=== PATIENT | male | born 1960 | race Caucasian/White ===

== ENCOUNTER 2022-06-13 14:05 | Day surgery (SDC) | payer BC, OTHER ==
[2022-06-13] MEDS ORDERED: DALBAVANCIN HCL 1,500 MG in DEXTROSE 5%-WATER - 500 ML IVPB ONE (14:30)
[2022-06-13 15:57] VITALS: BP 127/71; PULSE 68; RESP 18; TEMP 98.1
== END 2022-06-13 15:49 | disposition home or self-care (01) ==
LOC: FINFUSION 14:05 → FM/S 14:09 → FINFUSION 15:49
PROVIDERS: ATTEND Internal Medicine Infectious Disease
DX: M86.9 Osteomyelitis, unspecified (principal); E11.9 Type 2 diabetes mellitus without complications; G62.9 Polyneuropathy, unspecified
CPT/HCPCS: 96365; J0875

== ENCOUNTER 2022-06-21 12:26 | Day surgery (SDC) | payer BC, OTHER ==
[2022-06-21] MEDS ORDERED: DALBAVANCIN HCL 1,500 MG in DEXTROSE 5%-WATER - 500 ML IVPB ONE (13:30)
[2022-06-21 13:50] VITALS: BP 116/76; PULSE 76; RESP 18; TEMP 98.6
== END 2022-06-21 15:04 | disposition home or self-care (01) ==
LOC: FINFUSION 12:26 → FM/S 13:33 → FINFUSION 15:04
PROVIDERS: ATTEND Internal Medicine Infectious Disease
DX: M86.9 Osteomyelitis, unspecified (principal); E11.9 Type 2 diabetes mellitus without complications; G62.9 Polyneuropathy, unspecified
CPT/HCPCS: 96365; J0875

== ENCOUNTER 2022-08-06 11:32 | Inpatient (IN) | payer BC, OTHER ==
[2022-08-06 11:47] VITALS: BMI 31.4
[2022-08-06] MEDS ORDERED: PIPERACILLIN/TAZOB 3.375 GM 2.25 GM in DEXTROSE 5%-WATER - 50 ML IVPB ONE (15:26)
[2022-08-06] MEDS ORDERED: VANCOMYCIN/WATER 1,250 MG/250 ML BAG (RESTRICTED TO ID ONLY) IVPB ONE (15:34)
[2022-08-06] MEDS ORDERED: PIPERACILLIN/TAZOB 2.25 GM 2.25 GM/50 ML BAG IVPB ONE (15:37)
[2022-08-06] MEDS ORDERED: VANCOMYCIN/WATER 2 GM/400 ML PREMIX BAG IVPB ONE (15:39)
[2022-08-06 16:29] LABS: ALBUMIN 3.8 g/dl (3.4-5.0); BASO % 0.8 % (0-2.0); BLOOD UREA NITROGEN 35.8 mg/dL (7-18); CREATININE 6.7 mg/dL (0.55-1.3); EOS % 5.7 % (0-4.5); HEMATOCRIT 37.7 % (35.4-49); HEMOGLOBIN 12.1 GM/dL (11.7-16.9); LYMPH % 13.1 % (8-40); MCH 30.4 pg (25.7-33.7); MCHC 32.2 g/dl (32.0-35.9); MEAN CELL VOLUME 94.3 fl (80-96); MEAN PLT VOLUME 9.1 fl (7.5-11.1); MONO % 9.6 % (3.8-10.2); NEUT % 70.8 % (42.8-82.8); PLATELET COUNT 215 10^3/uL (134-434); RDW 17.5 % (11.9-15.9); WHITE BLOOD COUNT 7.8 K/mm3 (4.0-10.0)
[2022-08-06 16:30] LABS: BILIRUBIN,TOTAL 0.6 mg/dL (0.2-1); TOT PROT 7.8 g/dl (6.4-8.2)
[2022-08-06 16:37] LABS: INR 1.21 (0.83-1.09); PROTHROMBIN TIME (PATIENT) 13.9 SEC (9.7-13.0)
[2022-08-06 16:40] LABS: ACTIVATED PTT 31.3 SECONDS (25.2-36.5)
[2022-08-06 17:48] LABS: ERYTHROCYTE SEDIMENTATION RATE 48 mm/hr (0-20)
[2022-08-06] MEDS ORDERED: ACETAMINOPHEN 325 MG TABLET (FP) PO PRN (18:12)
[2022-08-06] MEDS ORDERED: HEPARIN NA (PORCINE) 5,000 UNITS/ML 1ML VIAL SQ SCH (22:00)
[2022-08-06] MEDS: INSULIN SLIDING SCALE (NOVOLOG) 1 VIAL SQ SCH (22:24)
[2022-08-06] MEDS ORDERED: HEPARIN NA (PORCINE) 5,000 UNITS/ML 1ML VIAL ONE (23:22)
[2022-08-06] MEDS ORDERED: ATORVASTATIN CA 40 MG TABLET (FP) ONE (23:22)
[2022-08-06] MEDS: HEPARIN - 25,000 UNIT in SODIUM CHLORIDE 495 ML IV SCH (23:33)
[2022-08-06] MEDS: HEPARIN NA (PORCINE) 5,000 UNITS/ML 1ML VIAL IVPUSH PRN (23:33)
[2022-08-06] MEDS: ATORVASTATIN CA 40 MG TABLET (FP) PO SCH (23:33)
[2022-08-07] MEDS ORDERED: LORazepam 0.5 MG TABLET ONE (00:40)
[2022-08-07] MEDS: LORazepam 0.5 MG TABLET PO PRN ×2 (00:50→22:04)
[2022-08-07] MEDS: INSULIN (LEVEMIR) 100 UNITS/ML UNITS SQ SCH ×2 (08:55→22:15)
[2022-08-07] MEDS: INSULIN SLIDING SCALE (NOVOLOG) 1 VIAL SQ SCH ×4 (08:55→22:10)
[2022-08-07 09:36] LABS: EOS % 6.5 % (0-4.5); HEMOGLOBIN 11.2 GM/dL (11.7-16.9); LYMPH % 14.6 % (8-40); MCH 30.9 pg (25.7-33.7); MEAN CELL VOLUME 93.6 fl (80-96); MONO % 9.4 % (3.8-10.2); NEUT % 68.5 % (42.8-82.8); PLATELET COUNT 215 10^3/uL (134-434); RBC 3.64 M/mm3 (4.00-5.60); RDW 17.3 % (11.9-15.9); WHITE BLOOD COUNT 6.8 K/mm3 (4.0-10.0)
[2022-08-07] MEDS: FUROSEMIDE 40 MG TABLET (FP) PO SCH (09:46)
[2022-08-07] MEDS ORDERED: FUROSEMIDE 40 MG TABLET (FP) ONE (09:48)
[2022-08-07 09:57] LABS: INR 1.16 (0.83-1.09); PROTHROMBIN TIME (PATIENT) 13.4 SEC (9.7-13.0)
[2022-08-07 10:03] LABS: ALBUMIN 3.6 g/dl (3.4-5.0); CALCIUM 9.1 mg/dL (8.5-10.1); MAGNESIUM 1.8 mg/dL (1.8-2.4)
[2022-08-07 10:05] LABS: CREATININE 7.3 mg/dL (0.55-1.3)
[2022-08-07 10:07] LABS: BILIRUBIN,TOTAL 0.8 mg/dL (0.2-1); TOT PROT 7.3 g/dl (6.4-8.2)
[2022-08-07] MEDS: HEPARIN NA (PORCINE) 5,000 UNITS/ML 1ML VIAL IVPUSH PRN (14:24)
[2022-08-07] MEDS ORDERED: HEPARIN NA (PORCINE) 5,000 UNITS/ML 1ML VIAL ONE (14:26)
[2022-08-07 17:10] VITALS: RESP 18
[2022-08-07] MEDS: ATORVASTATIN CA 40 MG TABLET (FP) PO SCH (22:04)
[2022-08-08] MEDS: PIPERACILLIN/TAZOB 2.25 GM 2.25 GM in DEXTROSE 5%-WATER - 50 ML IVPB SCH ×2 (04:25→09:25)
[2022-08-08] MEDS: INSULIN SLIDING SCALE (NOVOLOG) 1 VIAL SQ SCH ×4 (06:41→22:12)
[2022-08-08] MEDS: INSULIN (LEVEMIR) 100 UNITS/ML UNITS SQ SCH ×2 (07:55→22:17)
[2022-08-08] MEDS: FUROSEMIDE 40 MG TABLET (FP) PO SCH (09:15)
[2022-08-08 10:46] LABS: BASO % 0.6 % (0-2.0); EOS % 5.3 % (0-4.5); HEMATOCRIT 34.5 % (35.4-49); HEMOGLOBIN 11.4 GM/dL (11.7-16.9); LYMPH % 14.5 % (8-40); MCH 30.8 pg (25.7-33.7); MEAN CELL VOLUME 93.4 fl (80-96); MEAN PLT VOLUME 9.2 fl (7.5-11.1); MONO % 10.8 % (3.8-10.2); NEUT % 68.8 % (42.8-82.8); PLATELET COUNT 192 10^3/uL (134-434); RBC 3.69 M/mm3 (4.00-5.60); RDW 17.2 % (11.9-15.9); WHITE BLOOD COUNT 6.6 K/mm3 (4.0-10.0)
[2022-08-08 11:15] LABS: ALBUMIN 3.4 g/dl (3.4-5.0); BLOOD UREA NITROGEN 29.9 mg/dL (7-18)
[2022-08-08 11:17] LABS: CREATININE 5.7 mg/dL (0.55-1.3)
[2022-08-08 11:19] LABS: BILIRUBIN,TOTAL 0.6 mg/dL (0.2-1); TOT PROT 6.9 g/dl (6.4-8.2)
[2022-08-08] MEDS: COLLAGENASE CLOSTRIDIUM HIST. 30 GRAMS TUBE TP SCH (11:31)
[2022-08-08] MEDS: HEPARIN NA (PORCINE) 5,000 UNITS/ML 1ML VIAL IVPUSH PRN ×2 (11:37→18:58)
[2022-08-08] MEDS: CEFTRIAXONE 2 GM in DEXTROSE 5%-WATER 100 ML IVPB SCH (15:32)
[2022-08-08] MEDS ORDERED: INSULIN (NOVOLOG) ASPART 100 UNITS/ML 10ML VIAL ONE (22:08)
[2022-08-08] MEDS: ATORVASTATIN CA 40 MG TABLET (FP) PO SCH (22:13)
[2022-08-08] MEDS: LORazepam 0.5 MG TABLET PO PRN (22:13)
[2022-08-09] MEDS: HEPARIN NA (PORCINE) 5,000 UNITS/ML 1ML VIAL IVPUSH PRN ×2 (03:40→12:22)
[2022-08-09] MEDS: HEPARIN - 25,000 UNIT in SODIUM CHLORIDE 495 ML IV SCH ×2 (06:56→22:29)
[2022-08-09] MEDS: INSULIN (LEVEMIR) 100 UNITS/ML UNITS SQ SCH ×2 (07:00→21:46)
[2022-08-09] MEDS: INSULIN SLIDING SCALE (NOVOLOG) 1 VIAL SQ SCH ×4 (07:02→21:45)
[2022-08-09 10:19] LABS: BASO % 0.8 % (0-2.0); EOS % 7.3 % (0-4.5); HEMATOCRIT 34.7 % (35.4-49); HEMOGLOBIN 11.3 GM/dL (11.7-16.9); LYMPH % 13.6 % (8-40); MCH 30.6 pg (25.7-33.7); MCHC 32.6 g/dl (32.0-35.9); MEAN CELL VOLUME 93.9 fl (80-96); MEAN PLT VOLUME 9.2 fl (7.5-11.1); MONO % 8.2 % (3.8-10.2); NEUT % 70.1 % (42.8-82.8); PLATELET COUNT 189 10^3/uL (134-434); RDW 16.7 % (11.9-15.9)
[2022-08-09] MEDS: FUROSEMIDE 40 MG TABLET (FP) PO SCH (10:43)
[2022-08-09] MEDS: CEFTRIAXONE 2 GM in DEXTROSE 5%-WATER 100 ML IVPB SCH (10:43)
[2022-08-09] MEDS: LACTOBACILLUS ACIDOPHILUS 1 TABLET PO SCH (10:43)
[2022-08-09] MEDS: COLLAGENASE CLOSTRIDIUM HIST. 30 GRAMS TUBE TP SCH (10:44)
[2022-08-09 10:49] LABS: ALBUMIN 3.4 g/dl (3.4-5.0); BLOOD UREA NITROGEN 43.5 mg/dL (7-18); CALCIUM 9.4 mg/dL (8.5-10.1); MAGNESIUM 1.9 mg/dL (1.8-2.4)
[2022-08-09 10:51] LABS: PHOSPHOROUS 4.7 mg/dL (2.5-4.9)
[2022-08-09 10:52] LABS: CREATININE 6.9 mg/dL (0.55-1.3)
[2022-08-09 10:53] LABS: BILIRUBIN,TOTAL 0.7 mg/dL (0.2-1); TOT PROT 6.9 g/dl (6.4-8.2)
[2022-08-09] MEDS: ATORVASTATIN CA 40 MG TABLET (FP) PO SCH (21:50)
[2022-08-09] MEDS: LORazepam 0.5 MG TABLET PO PRN (21:52)
[2022-08-10] MEDS: INSULIN SLIDING SCALE (NOVOLOG) 1 VIAL SQ SCH ×4 (06:18→22:03)
[2022-08-10] MEDS: INSULIN (LEVEMIR) 100 UNITS/ML UNITS SQ SCH ×2 (06:20→22:01)
[2022-08-10] MEDS: FUROSEMIDE 40 MG TABLET (FP) PO SCH (09:27)
[2022-08-10] MEDS: LACTOBACILLUS ACIDOPHILUS 1 TABLET PO SCH (09:27)
[2022-08-10] MEDS: CEFTRIAXONE 2 GM in DEXTROSE 5%-WATER 100 ML IVPB SCH (09:28)
[2022-08-10] MEDS: COLLAGENASE CLOSTRIDIUM HIST. 30 GRAMS TUBE TP SCH (09:31)
[2022-08-10 09:50] LABS: HEMATOCRIT 33.2 % (35.4-49); HEMOGLOBIN 11.1 GM/dL (11.7-16.9); MCH 31.1 pg (25.7-33.7); MCHC 33.3 g/dl (32.0-35.9); MEAN CELL VOLUME 93.4 fl (80-96); MEAN PLT VOLUME 9.1 fl (7.5-11.1); PLATELET COUNT 190 10^3/uL (134-434); RBC 3.56 M/mm3 (4.00-5.60); RDW 17.6 % (11.9-15.9); WHITE BLOOD COUNT 6.4 K/mm3 (4.0-10.0)
[2022-08-10 10:34] LABS: BLOOD UREA NITROGEN 25.2 mg/dL (7-18); MAGNESIUM 1.8 mg/dL (1.8-2.4)
[2022-08-10 10:37] LABS: CREATININE 5.2 mg/dL (0.55-1.3)
[2022-08-10] MEDS: HEPARIN - 25,000 UNIT in SODIUM CHLORIDE 495 ML IV SCH (13:32)
[2022-08-10] MEDS: ATORVASTATIN CA 40 MG TABLET (FP) PO SCH (22:14)
[2022-08-10] MEDS: LORazepam 0.5 MG TABLET PO PRN (22:14)
[2022-08-11] MEDS: HEPARIN - 25,000 UNIT in SODIUM CHLORIDE 495 ML IV SCH (06:23)
[2022-08-11] MEDS: INSULIN SLIDING SCALE (NOVOLOG) 1 VIAL SQ SCH ×3 (06:24→22:30)
[2022-08-11] MEDS: INSULIN (LEVEMIR) 100 UNITS/ML UNITS SQ SCH ×2 (06:25→22:29)
[2022-08-11] MEDS: LACTOBACILLUS ACIDOPHILUS 1 TABLET PO SCH (09:01)
[2022-08-11] MEDS: CEFTRIAXONE 2 GM in DEXTROSE 5%-WATER 100 ML IVPB SCH (09:01)
[2022-08-11] MEDS: FUROSEMIDE 40 MG TABLET (FP) PO SCH (09:01)
[2022-08-11 10:39] LABS: HEMOGLOBIN 11.1 GM/dL (11.7-16.9); MCH 31.2 pg (25.7-33.7); MCHC 33.5 g/dl (32.0-35.9); MEAN CELL VOLUME 93.1 fl (80-96); MEAN PLT VOLUME 9.3 fl (7.5-11.1); PLATELET COUNT 157 10^3/uL (134-434); RBC 3.54 M/mm3 (4.00-5.60); RDW 17.3 % (11.9-15.9); WHITE BLOOD COUNT 6.8 K/mm3 (4.0-10.0)
[2022-08-11 11:03] LABS: BLOOD UREA NITROGEN 37.6 mg/dL (7-18)
[2022-08-11 11:04] LABS: CALCIUM 9.1 mg/dL (8.5-10.1); MAGNESIUM 1.9 mg/dL (1.8-2.4)
[2022-08-11 11:07] LABS: PHOSPHOROUS 4.4 mg/dL (2.5-4.9)
[2022-08-11 11:08] LABS: CREATININE 6.1 mg/dL (0.55-1.3)
[2022-08-11] MEDS: HEPARIN NA (PORCINE) 5,000 UNITS/ML 1ML VIAL IVPUSH PRN (11:36)
[2022-08-11] MEDS: COLLAGENASE CLOSTRIDIUM HIST. 30 GRAMS TUBE TP SCH (13:04)
[2022-08-11] MEDS: ATORVASTATIN CA 40 MG TABLET (FP) PO SCH (22:25)
[2022-08-11] MEDS: LORazepam 0.5 MG TABLET PO PRN (22:34)
[2022-08-12] MEDS: INSULIN (LEVEMIR) 100 UNITS/ML UNITS SQ SCH ×2 (06:09→22:22)
[2022-08-12] MEDS: INSULIN SLIDING SCALE (NOVOLOG) 1 VIAL SQ SCH ×4 (06:10→22:21)
[2022-08-12] MEDS: CEFTRIAXONE 2 GM in DEXTROSE 5%-WATER 100 ML IVPB SCH (09:10)
[2022-08-12] MEDS: FUROSEMIDE 40 MG TABLET (FP) PO SCH (09:10)
[2022-08-12] MEDS: LACTOBACILLUS ACIDOPHILUS 1 TABLET PO SCH (09:10)
[2022-08-12 09:58] LABS: BASO % 0.6 % (0-2.0); EOS % 6.8 % (0-4.5); HEMATOCRIT 34.7 % (35.4-49); HEMOGLOBIN 11.3 GM/dL (11.7-16.9); LYMPH % 11.7 % (8-40); MCH 30.9 pg (25.7-33.7); MCHC 32.6 g/dl (32.0-35.9); MEAN CELL VOLUME 94.7 fl (80-96); MEAN PLT VOLUME 9.5 fl (7.5-11.1); MONO % 6.6 % (3.8-10.2); NEUT % 74.3 % (42.8-82.8); PLATELET COUNT 178 10^3/uL (134-434); RBC 3.66 M/mm3 (4.00-5.60); RDW 17.5 % (11.9-15.9); WHITE BLOOD COUNT 7.8 K/mm3 (4.0-10.0)
[2022-08-12 10:28] LABS: ALBUMIN 3.4 g/dl (3.4-5.0); BLOOD UREA NITROGEN 45.8 mg/dL (7-18); CALCIUM 9.4 mg/dL (8.5-10.1); MAGNESIUM 2.1 mg/dL (1.8-2.4)
[2022-08-12 10:31] LABS: PHOSPHOROUS 4.5 mg/dL (2.5-4.9)
[2022-08-12 10:32] LABS: CREATININE 6.8 mg/dL (0.55-1.3)
[2022-08-12 10:33] LABS: BILIRUBIN,TOTAL 0.6 mg/dL (0.2-1); TOT PROT 6.8 g/dl (6.4-8.2)
[2022-08-12] MEDS ORDERED: INSULIN (NOVOLOG) ASPART 100 UNITS/ML 10ML VIAL ONE ×2 (11:22→17:59)
[2022-08-12] MEDS: COLLAGENASE CLOSTRIDIUM HIST. 30 GRAMS TUBE TP SCH (15:46)
[2022-08-12] MEDS ORDERED: INSULIN (LEVEMIR) 100 UNITS/ML UNITS SQ ONE (17:59)
[2022-08-12] MEDS: LORazepam 0.5 MG TABLET PO PRN (22:20)
[2022-08-12] MEDS: ATORVASTATIN CA 40 MG TABLET (FP) PO SCH (22:20)
[2022-08-13] MEDS: INSULIN (LEVEMIR) 100 UNITS/ML UNITS SQ SCH (06:59)
[2022-08-13] MEDS: INSULIN SLIDING SCALE (NOVOLOG) 1 VIAL SQ SCH ×3 (07:00→16:34)
[2022-08-13 08:57] LABS: BASO % 0.8 % (0-2.0); EOS % 5.1 % (0-4.5); HEMATOCRIT 34.8 % (35.4-49); HEMOGLOBIN 11.4 GM/dL (11.7-16.9); LYMPH % 12.2 % (8-40); MCH 30.8 pg (25.7-33.7); MCHC 32.7 g/dl (32.0-35.9); MEAN PLT VOLUME 9.5 fl (7.5-11.1); MONO % 8.3 % (3.8-10.2); NEUT % 73.6 % (42.8-82.8); PLATELET COUNT 173 10^3/uL (134-434); RDW 17.5 % (11.9-15.9); WHITE BLOOD COUNT 7.6 K/mm3 (4.0-10.0)
[2022-08-13 09:18] LABS: CALCIUM 9.1 mg/dL (8.5-10.1)
[2022-08-13 09:19] LABS: ALBUMIN 3.4 g/dl (3.4-5.0); BLOOD UREA NITROGEN 30.2 mg/dL (7-18); MAGNESIUM 2.1 mg/dL (1.8-2.4)
[2022-08-13 09:22] LABS: CREATININE 5.3 mg/dL (0.55-1.3); PHOSPHOROUS 4.4 mg/dL (2.5-4.9)
[2022-08-13 09:23] LABS: BILIRUBIN,TOTAL 0.7 mg/dL (0.2-1); TOT PROT 6.7 g/dl (6.4-8.2)
[2022-08-13] MEDS: LACTOBACILLUS ACIDOPHILUS 1 TABLET PO SCH (10:18)
[2022-08-13] MEDS: FUROSEMIDE 40 MG TABLET (FP) PO SCH (10:18)
[2022-08-13] MEDS: COLLAGENASE CLOSTRIDIUM HIST. 30 GRAMS TUBE TP SCH (10:20)
[2022-08-13] MEDS: CEFTRIAXONE 2 GM in DEXTROSE 5%-WATER 100 ML IVPB SCH (10:21)
[2022-08-13] MEDS ORDERED: HEPARIN NA (PORCINE) 5,000 UNITS/ML 1ML VIAL IVPUSH PRN ×2 (10:38)
[2022-08-13] MEDS ORDERED: HEPARIN - 25,000 UNIT in SODIUM CHLORIDE 495 ML IV SCH (10:45)
[2022-08-13] MEDS ORDERED: APIXABAN 2.5 MG TABLET PO SCH ×2 (11:51→22:00)
[2022-08-13 14:49] VITALS: BP 151/73; PULSE 73; TEMP 98.3
[2022-08-13] MEDS ORDERED: VANCOMYCIN PREMIX 1.5 GM 1,500 MG/300 ML BAG IVPB ONE (15:00)
[2022-08-13] MEDS ORDERED: VANCOMYCIN 1 GM/200 ML PREMIX BAG (RESTRICTED TO ID ONLY) IVPB ONE (15:15)
== END 2022-08-13 17:34 | disposition home or self-care (01) | DRG 638 ==
LOC: JER 11:32 → JERBED 15:45 → J6S 08-07 18:45
PROVIDERS: ADMIT Internal Medicine
PROC: 5A1D70Z Performance of Urinary Filtration, Intermittent, Less than 6 Hours Per Day (ICD-10-PCS; principal; 2022-08-07)
PROC: 5A1D70Z Performance of Urinary Filtration, Intermittent, Less than 6 Hours Per Day (ICD-10-PCS; 2022-08-09)
PROC: 5A1D70Z Performance of Urinary Filtration, Intermittent, Less than 6 Hours Per Day (ICD-10-PCS; 2022-08-12)
DX: E11.69 Type 2 diabetes mellitus with other specified complication (principal); I13.2 Hypertensive heart and chronic kidney disease with heart failure and with stage 5 chronic kidney disease, or end stage renal disease; L03.116 Cellulitis of left lower limb; L97.528 Non-pressure chronic ulcer of other part of left foot with other specified severity; M86.8X7 Other osteomyelitis, ankle and foot; I50.32 Chronic diastolic (congestive) heart failure; E11.621 Type 2 diabetes mellitus with foot ulcer; N18.6 End stage renal disease; E78.5 Hyperlipidemia, unspecified; E11.22 Type 2 diabetes mellitus with diabetic chronic kidney disease; E11.40 Type 2 diabetes mellitus with diabetic neuropathy, unspecified; I25.10 Atherosclerotic heart disease of native coronary artery without angina pectoris; F39 Unspecified mood [affective] disorder; Z95.1 Presence of aortocoronary bypass graft; Z99.2 Dependence on renal dialysis
CPT/HCPCS: 0241U-QW; 36415; 71046-TC-FY; 73630-TC-LT; 73718-TC-LT; 80048; 80053; 82962; 83735; 84100; 85025; 85027; 85610; 85651; 85730; 86140; 86803; 86850; 86900; 86901; 87040; 87070; 87205; 87340; 93005; 93010; 99285-25; G0463-25; J1644

== ENCOUNTER 2022-09-26 04:19 | Inpatient (IN) | payer BC, OTHER ==
[2022-09-22 12:10] VITALS: BMI 31.4
[~2022-09-26 04:19] MED LIST: LIDOCAINE HCL 1%, 10 MG/ML (20ML VIAL) NR ONE
[2022-09-26] MEDS ORDERED: MIDAZOLAM HCL 2 MG/2 ML SINGLE DOSE VIAL ONE ×2 (07:02→08:22)
[2022-09-26] MEDS ORDERED: SUCCINYLCHOLINE CHLORIDE 200 MG/10 ML SYRINGE ONE (07:03)
[2022-09-26] MEDS ORDERED: KETAMINE HCL 500 MG/10 ML VIAL ONE (07:03)
[2022-09-26] MEDS ORDERED: BUPIVACAINE HCL/PF 0.5% (5MG/ML) 10 ML VIAL ONE ×2 (07:13→08:51)
[2022-09-26] MEDS ORDERED: LIDOCAINE HCL 1%, 10 MG/ML (10ML VIAL) MDV ONE (07:13)
[2022-09-26] MEDS ORDERED: BUPIVACAINE HCL/PF 0.5% (5MG/ML) 10 ML VIAL IJ ONE ×2 (07:40)
[2022-09-26] MEDS ORDERED: LIDOCAINE HCL 1%, 10 MG/ML (20ML VIAL) NR ONE (07:40)
[2022-09-26] MEDS ORDERED: VANCOMYCIN 1,000 MG VIAL (RESTRICTED TO ID ONLY) ONE (07:42)
[2022-09-26 07:43] LABS: BLOOD UREA NITROGEN 59.4 mg/dL (7-18); CALCIUM 9.9 mg/dL (8.5-10.1)
[2022-09-26] MEDS ORDERED: ceFAZolin SODIUM 1 GM VIAL IVPB ONE (07:45)
[2022-09-26 07:47] LABS: CREATININE 7.2 mg/dL (0.55-1.3)
[2022-09-26] MEDS ORDERED: ROCURONIUM BROMIDE 50 MG/5 ML SYRINGE ONE (07:54)
[2022-09-26] MEDS ORDERED: PROPOFOL 40 ML ONE (07:55)
[2022-09-26] MEDS ORDERED: GENTAMICIN SO4 80 MG/2 ML VIAL ONE (08:05)
[2022-09-26] MEDS ORDERED: GENTAMICIN SO4 80 MG/2 ML VIAL IVPB ONE (08:07)
[2022-09-26] MEDS ORDERED: VANCOMYCIN 1,000 MG VIAL (RESTRICTED TO ID ONLY) IVPB ONE (08:30)
[2022-09-26 10:45] LABS: BASO % 0.8 % (0-2.0); EOS % 3.7 % (0-4.5); HEMATOCRIT 39.1 % (35.4-49); HEMOGLOBIN 12.7 GM/dL (11.7-16.9); LYMPH % 11.8 % (8-40); MCH 30.3 pg (25.7-33.7); MCHC 32.4 g/dl (32.0-35.9); MEAN CELL VOLUME 93.5 fl (80-96); MEAN PLT VOLUME 8.6 fl (7.5-11.1); MONO % 8.1 % (3.8-10.2); NEUT % 75.6 % (42.8-82.8); PLATELET COUNT 167 10^3/uL (134-434); RBC 4.18 M/mm3 (4.00-5.60); RDW 16.2 % (11.9-15.9); WHITE BLOOD COUNT 8.1 K/mm3 (4.0-10.0)
[2022-09-26 11:32] LABS: MAGNESIUM 2.2 mg/dL (1.8-2.4)
[2022-09-26 11:36] LABS: PHOSPHOROUS 6.8 mg/dL (2.5-4.9)
[2022-09-26] MEDS ORDERED: PATIENT'S OWN MEDICATION (NON-FORMULARY) (Ferric Citrate [Auryxia] 210 MG Tablet) PO SCH (12:00)
[2022-09-26] MEDS ORDERED: LORazepam 0.5 MG TABLET PO PRN (15:39)
[2022-09-26] MEDS: CEFTRIAXONE 1 GM in DEXTROSE 5%-WATER - 50 ML IVPB SCH (16:27)
[2022-09-26] MEDS: INSULIN SLIDING SCALE (NOVOLOG) 1 VIAL SQ SCH ×2 (17:06→21:12)
[2022-09-26] MEDS: INSULIN (LEVEMIR) 100 UNITS/ML UNITS SQ SCH (21:10)
[2022-09-26] MEDS ORDERED: ATORVASTATIN CA 40 MG TABLET (FP) PO SCH (22:00)
[2022-09-26] MEDS ORDERED: VALSARTAN 160 MG TABLET PO SCH (22:00)
[2022-09-26] MEDS ORDERED: ACETAMINOPHEN 1000 MG/100 ML BAG IVPB ONE (22:45)
[2022-09-27] MEDS ORDERED: POLYETHYLENE GLYCOL (HEALTHYLAX) 3350 17 GM PACKET PO SCH (02:45)
[2022-09-27] MEDS: INSULIN SLIDING SCALE (NOVOLOG) 1 VIAL SQ SCH ×3 (06:15→13:12)
[2022-09-27 07:42] LABS: CHLORIDE 104 mmol/L (98-107); SODIUM 139 mmol/L (136-145)
[2022-09-27 07:55] LABS: CALCIUM 9.8 mg/dL (8.5-10.1)
[2022-09-27 07:56] LABS: ANION GAP 12 MMOL/L (8-16); BLOOD UREA NITROGEN 72.6 mg/dL (7-18); CO2 24 mmol/L (21-32); GLUCOSE,RANDOM 187 mg/dL (74-106)
[2022-09-27 07:58] LABS: ALBUMIN 3.4 g/dl (3.4-5.0); SGPT/ALT 19 U/L (13-61)
[2022-09-27 07:59] LABS: SGOT/AST 13 U/L (15-37)
[2022-09-27 08:00] LABS: TOT PROT 6.7 g/dl (6.4-8.2)
[2022-09-27 08:01] LABS: ALK PHOS 75 U/L (45-117); BILIRUBIN,TOTAL 0.5 mg/dL (0.2-1)
[2022-09-27 08:05] LABS: CREATININE 8.3 mg/dL (0.55-1.3)
[2022-09-27 08:49] VITALS: RESP 18
[2022-09-27] MEDS: INSULIN (LEVEMIR) 100 UNITS/ML UNITS SQ SCH (09:04)
[2022-09-27] MEDS ORDERED: APIXABAN 2.5 MG TABLET PO SCH (10:00)
[2022-09-27] MEDS: FUROSEMIDE 40 MG TABLET (FP) PO SCH ×2 (10:02→13:10)
[2022-09-27] MEDS: CEFTRIAXONE 1 GM in DEXTROSE 5%-WATER - 50 ML IVPB SCH (13:11)
[2022-09-27 13:17] VITALS: TEMP 98.5
[2022-09-27 13:18] VITALS: BP 169/68; PULSE 85
[2022-09-27 13:54] LABS: HEMATOCRIT 36.9 % (35.4-49); HEMOGLOBIN 11.9 GM/dL (11.7-16.9); LYMPH % 9.4 % (8-40); MCH 30.3 pg (25.7-33.7); MCHC 32.3 g/dl (32.0-35.9); MEAN PLT VOLUME 8.7 fl (7.5-11.1); MONO % 8.1 % (3.8-10.2); NEUT % 77.5 % (42.8-82.8); PLATELET COUNT 171 10^3/uL (134-434); RBC 3.93 M/mm3 (4.00-5.60); RDW 16.3 % (11.9-15.9); WHITE BLOOD COUNT 7.7 K/mm3 (4.0-10.0)
== END 2022-09-27 16:39 | disposition home or self-care (01) | DRG 503 ==
LOC: JASU-SURG 04:19 → J2C 09:03 → J4W 12:04
PROVIDERS: ADMIT Podiatrist Foot Surgery; ATTEND Internal Medicine
PROC: 0QBP0ZZ Excision of Left Metatarsal, Open Approach (ICD-10-PCS; 2022-09-26)
PROC: 3E0V329 Introduction of Other Anti-infective into Bones, Percutaneous Approach (ICD-10-PCS; 2022-09-26)
PROC: 0QBP0Z2 Excision of Left Metatarsal, Sesamoid Bone(s) 1st Toe, Open Approach (ICD-10-PCS; principal; 2022-09-26 07:30)
DX: M21.612 Bunion of left foot (principal); N18.6 End stage renal disease; I12.0 Hypertensive chronic kidney disease with stage 5 chronic kidney disease or end stage renal disease; M86.672 Other chronic osteomyelitis, left ankle and foot; E11.69 Type 2 diabetes mellitus with other specified complication; M89.38 Hypertrophy of bone, other site; E11.40 Type 2 diabetes mellitus with diabetic neuropathy, unspecified; E11.21 Type 2 diabetes mellitus with diabetic nephropathy; I25.10 Atherosclerotic heart disease of native coronary artery without angina pectoris; E78.5 Hyperlipidemia, unspecified; E11.22 Type 2 diabetes mellitus with diabetic chronic kidney disease; Z99.2 Dependence on renal dialysis; Z95.1 Presence of aortocoronary bypass graft
CPT/HCPCS: 36415; 73630-TC-LT; 80048; 80053; 82962; 83036; 83735; 84100; 85025; 86803; 87070; 87075; 87340; 88305-TC; 88311-TC; 93005; 93010; 94760; C1713

== ENCOUNTER 2023-07-24 07:39 | Inpatient (IN) | payer OTHER, BC ==
[2023-07-24 08:07] VITALS: BMI 31.8
[2023-07-24 10:09] LABS: BASO % 0.8 % (0-2.0); EOS % 0.2 % (0-4.5); HEMATOCRIT 42.5 % (35.4-49); HEMOGLOBIN 13.7 GM/dL (11.7-16.9); LYMPH % 3.2 % (8-40); MCHC 32.3 g/dl (32.0-35.9); MEAN CELL VOLUME 99.1 fl (80-96); MEAN PLT VOLUME 10.4 fl (7.5-11.1); MONO % 7.5 % (3.8-10.2); NEUT % 88.3 % (42.8-82.8); PLATELET COUNT 141 10^3/uL (134-434); RBC 4.28 M/mm3 (4.00-5.60); RDW 16.1 % (11.9-15.9); WHITE BLOOD COUNT 13.9 K/mm3 (4.0-10.0)
[2023-07-24 10:12] LABS: INR 1.3 (0.83-1.09)
[2023-07-24 10:15] LABS: ACTIVATED PTT 30.9 SECONDS (25.2-36.5)
[2023-07-24 10:47] LABS: POTASSIUM 5.2 mmol/L (3.5-5.1)
[2023-07-24 10:48] LABS: CALCIUM 8.8 mg/dL (8.5-10.1)
[2023-07-24 10:49] LABS: ALBUMIN 2.8 g/dl (3.4-5.0); BLOOD UREA NITROGEN 75.3 mg/dL (7-18)
[2023-07-24 10:54] LABS: BILIRUBIN,TOTAL 0.9 mg/dL (0.2-1); CREATININE 6.7 mg/dL (0.55-1.3); TOT PROT 6.7 g/dl (6.4-8.2)
[2023-07-24] MEDS ORDERED: ACETAMINOPHEN 1000 MG/100 ML BAG IVPB PRN (12:37)
[2023-07-24] MEDS ORDERED: SODIUM ZIRCONIUM CYCLOSILICATE (LOKELMA) 5 GM PACKET PO ONE (13:15)
[2023-07-24] MEDS ORDERED: HEPARIN NA (PORCINE) 5,000 UNITS/ML 1ML VIAL SQ SCH (14:00)
[2023-07-24] MEDS: COLLAGENASE CLOSTRIDIUM HIST. 30 GRAMS TUBE TP SCH (14:14)
[2023-07-24] MEDS ORDERED: SODIUM ZIRCONIUM CYCLOSILICATE (LOKELMA) 5 GM PACKET ONE (14:16)
[2023-07-24] MEDS ORDERED: VANCOMYCIN 1,000 MG in DEXTROSE 5%-WATER - 250 ML IVPB ONE (16:45)
[2023-07-24] MEDS ORDERED: ERTAPENEM SODIUM 1 GM in SODIUM CHLORIDE 50 ML IVPB ONE (17:00)
[2023-07-24] MEDS: INSULIN ASPART SLIDING SCALE (NOVOLOG) 1 VIAL SQ SCH ×2 (17:34→22:39)
[2023-07-24] MEDS ORDERED: ERTAPENEM SODIUM 1 GM VIAL ONE (17:35)
[2023-07-24] MEDS ORDERED: ASPIRIN 300 MG SUPP.RECT RC ONE (17:47)
[2023-07-24] MEDS ORDERED: VANCOMYCIN 1 GRAM (PRE-DOCKED) 1,000 MG/250 ML BAG IVPB ONE (18:33)
[2023-07-24] MEDS ORDERED: ATORVASTATIN CA 40 MG TABLET (FP) ONE (21:12)
[2023-07-24] MEDS ORDERED: ACETAMINOPHEN INJECTION 100 ML IVPB ONE (21:12)
[2023-07-24] MEDS ORDERED: metoPROLOL SUCCINATE 25 MG TAB.SR.24H (FP) PO ONE (21:12)
[2023-07-24] MEDS ORDERED: APIXABAN 2.5 MG TABLET ONE (21:12)
[2023-07-24] MEDS: APIXABAN 2.5 MG TABLET PO SCH (21:26)
[2023-07-24] MEDS: ATORVASTATIN CA 40 MG TABLET (FP) PO SCH (21:26)
[2023-07-24] MEDS: metoPROLOL SUCCINATE 25 MG TAB.SR.24H (FP) PO SCH (21:26)
[2023-07-24] MEDS ORDERED: VALSARTAN 160 MG TABLET PO SCH (22:00)
[2023-07-25] MEDS: INSULIN ASPART SLIDING SCALE (NOVOLOG) 1 VIAL SQ SCH ×4 (05:59→21:40)
[2023-07-25] MEDS ORDERED: traMADol HCL 50 MG TABLET PO PRN (07:48)
[2023-07-25] MEDS ORDERED: ACETAMINOPHEN 500 MG TABLET (FP) PO PRN (07:48)
[2023-07-25 08:18] LABS: CHLORIDE 96 mmol/L (98-107); POTASSIUM 5.8 mmol/L (3.5-5.1); SODIUM 135 mmol/L (136-145)
[2023-07-25 08:21] LABS: BASO % 0.3 % (0-2.0); EOS % 0.8 % (0-4.5); HEMATOCRIT 39.9 % (35.4-49); HEMOGLOBIN 13.2 GM/dL (11.7-16.9); LYMPH % 3.3 % (8-40); MCH 32.7 pg (25.7-33.7); MCHC 33.2 g/dl (32.0-35.9); MEAN CELL VOLUME 98.7 fl (80-96); MEAN PLT VOLUME 10.1 fl (7.5-11.1); MONO % 8.4 % (3.8-10.2); NEUT % 87.2 % (42.8-82.8); PLATELET COUNT 123 10^3/uL (134-434); RBC 4.05 M/mm3 (4.00-5.60); RDW 15.4 % (11.9-15.9); WHITE BLOOD COUNT 14.2 K/mm3 (4.0-10.0)
[2023-07-25 08:28] LABS: BLOOD UREA NITROGEN 90.2 mg/dL (7-18); CALCIUM 9.2 mg/dL (8.5-10.1)
[2023-07-25 08:29] LABS: ALBUMIN 2.6 g/dl (3.4-5.0); ANION GAP 11 mmol/L (4-13); CO2 28 mmol/L (21-32); GLUCOSE,RANDOM 166 mg/dL (74-106)
[2023-07-25 08:30] LABS: SGPT/ALT 15 U/L (13-61)
[2023-07-25 08:31] LABS: TOT PROT 6.3 g/dl (6.4-8.2)
[2023-07-25 08:32] LABS: BILIRUBIN,TOTAL 1.3 mg/dL (0.2-1); PHOSPHOROUS 6.4 mg/dL (2.5-4.9); SGOT/AST 26 U/L (15-37)
[2023-07-25 08:33] LABS: ALK PHOS 294 U/L (45-117); CREATININE 7.8 mg/dL (0.55-1.3)
[2023-07-25] MEDS ORDERED: ATORVASTATIN CA 40 MG TABLET (FP) ONE (09:32)
[2023-07-25] MEDS: FUROSEMIDE 40 MG TABLET (FP) PO SCH (09:33)
[2023-07-25] MEDS: APIXABAN 2.5 MG TABLET PO SCH ×2 (09:33→21:22)
[2023-07-25] MEDS ORDERED: FUROSEMIDE 40 MG TABLET (FP) ONE (09:34)
[2023-07-25] MEDS: COLLAGENASE CLOSTRIDIUM HIST. 30 GRAMS TUBE TP SCH (09:35)
[2023-07-25] MEDS ORDERED: ERTAPENEM SODIUM 0.5 GM in SODIUM CHLORIDE 50 ML IVPB ONE (19:30)
[2023-07-25] MEDS: traMADol HCL 50 MG TABLET PO PRN (21:23)
[2023-07-25] MEDS: ATORVASTATIN CA 40 MG TABLET (FP) PO SCH (21:25)
[2023-07-25] MEDS: metoPROLOL SUCCINATE 25 MG TAB.SR.24H (FP) PO SCH (21:25)
[2023-07-25] MEDS: LORazepam 0.5 MG TABLET PO PRN (21:36)
[2023-07-26] MEDS: INSULIN ASPART SLIDING SCALE (NOVOLOG) 1 VIAL SQ SCH ×4 (06:02→21:03)
[2023-07-26] MEDS: APIXABAN 2.5 MG TABLET PO SCH ×2 (09:16→21:04)
[2023-07-26] MEDS: FUROSEMIDE 40 MG TABLET (FP) PO SCH (09:16)
[2023-07-26] MEDS: COLLAGENASE CLOSTRIDIUM HIST. 30 GRAMS TUBE TP SCH (09:17)
[2023-07-26 09:41] LABS: BASO % 0.2 % (0-2.0); EOS % 0.9 % (0-4.5); HEMATOCRIT 38.8 % (35.4-49); HEMOGLOBIN 12.9 GM/dL (11.7-16.9); LYMPH % 4.1 % (8-40); MCH 32.7 pg (25.7-33.7); MCHC 33.4 g/dl (32.0-35.9); MEAN CELL VOLUME 97.9 fl (80-96); MEAN PLT VOLUME 9.9 fl (7.5-11.1); MONO % 8.9 % (3.8-10.2); NEUT % 85.9 % (42.8-82.8); PLATELET COUNT 146 10^3/uL (134-434); RBC 3.96 M/mm3 (4.00-5.60); RDW 15.7 % (11.9-15.9)
[2023-07-26 10:00] LABS: POTASSIUM 4.9 mmol/L (3.5-5.1)
[2023-07-26 10:08] LABS: BLOOD UREA NITROGEN 70.7 mg/dL (7-18); CALCIUM 8.9 mg/dL (8.5-10.1); MAGNESIUM 2.1 mg/dL (1.8-2.4)
[2023-07-26 10:11] LABS: PHOSPHOROUS 6.1 mg/dL (2.5-4.9)
[2023-07-26 10:12] LABS: CREATININE 6.8 mg/dL (0.55-1.3)
[2023-07-26] MEDS: VALSARTAN 160 MG TABLET PO SCH (14:53)
[2023-07-26] MEDS: DOCUSATE SODIUM 100 MG CAPSULE (FP) PO PRN (17:38)
[2023-07-26] MEDS: LORazepam 0.5 MG TABLET PO PRN (20:48)
[2023-07-26] MEDS: metoPROLOL SUCCINATE 25 MG TAB.SR.24H (FP) PO SCH (21:03)
[2023-07-26] MEDS: ATORVASTATIN CA 40 MG TABLET (FP) PO SCH (21:03)
[2023-07-26] MEDS: traMADol HCL 50 MG TABLET PO PRN (21:04)
[2023-07-27] MEDS: INSULIN ASPART SLIDING SCALE (NOVOLOG) 1 VIAL SQ SCH ×4 (07:02→21:29)
[2023-07-27] MEDS: COLLAGENASE CLOSTRIDIUM HIST. 30 GRAMS TUBE TP SCH (09:33)
[2023-07-27] MEDS: FUROSEMIDE 40 MG TABLET (FP) PO SCH (09:33)
[2023-07-27] MEDS: APIXABAN 2.5 MG TABLET PO SCH (09:33)
[2023-07-27 10:41] LABS: BASO % 0.8 % (0-2.0); EOS % 1.4 % (0-4.5); HEMATOCRIT 39.6 % (35.4-49); HEMOGLOBIN 12.9 GM/dL (11.7-16.9); LYMPH % 4.5 % (8-40); MCH 32.2 pg (25.7-33.7); MCHC 32.5 g/dl (32.0-35.9); MEAN CELL VOLUME 99.2 fl (80-96); MEAN PLT VOLUME 9.6 fl (7.5-11.1); MONO % 7.3 % (3.8-10.2); PLATELET COUNT 149 10^3/uL (134-434); RBC 3.99 M/mm3 (4.00-5.60); RDW 15.3 % (11.9-15.9); WHITE BLOOD COUNT 11.3 K/mm3 (4.0-10.0)
[2023-07-27 11:07] LABS: CHLORIDE 95 mmol/L (98-107); POTASSIUM 5.1 mmol/L (3.5-5.1); SODIUM 135 mmol/L (136-145)
[2023-07-27 11:11] LABS: CALCIUM 9.4 mg/dL (8.5-10.1)
[2023-07-27 11:12] LABS: ALBUMIN 2.6 g/dl (3.4-5.0); ANION GAP 14 mmol/L (4-13); BLOOD UREA NITROGEN 87.7 mg/dL (7-18); CO2 25 mmol/L (21-32); GLUCOSE,RANDOM 216 mg/dL (74-106); MAGNESIUM 2.2 mg/dL (1.8-2.4)
[2023-07-27 11:15] LABS: PHOSPHOROUS 7.3 mg/dL (2.5-4.9); SGOT/AST 40 U/L (15-37); SGPT/ALT 22 U/L (13-61)
[2023-07-27 11:16] LABS: TOT PROT 6.4 g/dl (6.4-8.2)
[2023-07-27 11:17] LABS: BILIRUBIN,TOTAL 1.5 mg/dL (0.2-1)
[2023-07-27 11:19] LABS: ALK PHOS 393 U/L (45-117); CREATININE 8.1 mg/dL (0.55-1.3)
[2023-07-27] MEDS ORDERED: SODIUM CHLORIDE 250 ML IV PRN (11:26)
[2023-07-27] MEDS: SEVELAMER CARBONATE 800 MG TAB (FP) PO SCH ×2 (12:00→17:43)
[2023-07-27] MEDS ORDERED: PATIENT'S OWN MEDICATION (NON-FORMULARY) (Ferric Citrate [Auryxia] 210 MG Tablet) PO SCH (17:30)
[2023-07-27] MEDS: LORazepam 0.5 MG TABLET PO PRN (20:39)
[2023-07-27] MEDS: VALSARTAN 160 MG TABLET PO SCH (21:17)
[2023-07-27] MEDS: metoPROLOL SUCCINATE 25 MG TAB.SR.24H (FP) PO SCH (21:18)
[2023-07-27] MEDS: ATORVASTATIN CA 40 MG TABLET (FP) PO SCH (21:18)
[2023-07-28] MEDS ORDERED: ONDANSETRON 4 MG/2 ML VIAL IVPUSH ONE (03:15)
[2023-07-28] MEDS: INSULIN ASPART SLIDING SCALE (NOVOLOG) 1 VIAL SQ SCH ×4 (06:04→22:01)
[2023-07-28] MEDS: SEVELAMER CARBONATE 800 MG TAB (FP) PO SCH ×3 (08:42→18:39)
[2023-07-28] MEDS: FUROSEMIDE 40 MG TABLET (FP) PO SCH (09:43)
[2023-07-28 11:32] LABS: BASO % 0.4 % (0-2.0); EOS % 1.1 % (0-4.5); HEMATOCRIT 39.5 % (35.4-49); LYMPH % 4.8 % (8-40); MCH 32.7 pg (25.7-33.7); MCHC 32.9 g/dl (32.0-35.9); MEAN CELL VOLUME 99.5 fl (80-96); MONO % 8.6 % (3.8-10.2); NEUT % 85.1 % (42.8-82.8); PLATELET COUNT 159 10^3/uL (134-434); RBC 3.97 M/mm3 (4.00-5.60); RDW 15.6 % (11.9-15.9); WHITE BLOOD COUNT 9.9 K/mm3 (4.0-10.0)
[2023-07-28 11:39] LABS: INR 1.38 (0.83-1.09); PROTHROMBIN TIME (PATIENT) 15.9 SEC (9.7-13.0)
[2023-07-28 11:52] LABS: POTASSIUM 4.7 mmol/L (3.5-5.1)
[2023-07-28 11:54] LABS: CALCIUM 8.9 mg/dL (8.5-10.1)
[2023-07-28 11:55] LABS: ALBUMIN 2.6 g/dl (3.4-5.0); BLOOD UREA NITROGEN 64.9 mg/dL (7-18)
[2023-07-28 11:59] LABS: BILIRUBIN,TOTAL 1.5 mg/dL (0.2-1)
[2023-07-28 12:00] LABS: CREATININE 6.9 mg/dL (0.55-1.3); TOT PROT 6.4 g/dl (6.4-8.2)
[2023-07-28] MEDS: COLLAGENASE CLOSTRIDIUM HIST. 30 GRAMS TUBE TP SCH (12:24)
[2023-07-28] MEDS ORDERED: SODIUM CHLORIDE 250 ML IV PRN (16:51)
[2023-07-28] MEDS ORDERED: VANCOMYCIN/WATER FOR INJ (PEG) 1,000 MG/200 ML BAG IVPB ONE (18:07)
[2023-07-28 20:05] LABS: BILIRUBIN,DIRECT 0.9 mg/dL (0.0-0.2)
[2023-07-28] MEDS: metoPROLOL SUCCINATE 25 MG TAB.SR.24H (FP) PO SCH (21:57)
[2023-07-28] MEDS: ATORVASTATIN CA 40 MG TABLET (FP) PO SCH (21:57)
[2023-07-28] MEDS: VALSARTAN 160 MG TABLET PO SCH (21:57)
[2023-07-28] MEDS: traMADol HCL 50 MG TABLET PO PRN (22:06)
[2023-07-29] MEDS: SEVELAMER CARBONATE 800 MG TAB (FP) PO SCH ×3 (09:04→17:07)
[2023-07-29] MEDS: FUROSEMIDE 40 MG TABLET (FP) PO SCH (09:04)
[2023-07-29] MEDS: FERROUS SO4 325 MG TABLET (FP) PO SCH (09:04)
[2023-07-29 10:44] LABS: BASO % 0.9 % (0-2.0); EOS % 1.3 % (0-4.5); HEMATOCRIT 39.5 % (35.4-49); HEMOGLOBIN 12.9 GM/dL (11.7-16.9); MCH 32.2 pg (25.7-33.7); MCHC 32.8 g/dl (32.0-35.9); MEAN CELL VOLUME 98.2 fl (80-96); MEAN PLT VOLUME 9.9 fl (7.5-11.1); MONO % 8.8 % (3.8-10.2); PLATELET COUNT 166 10^3/uL (134-434); RBC 4.02 M/mm3 (4.00-5.60); RDW 15.8 % (11.9-15.9); WHITE BLOOD COUNT 8.7 K/mm3 (4.0-10.0)
[2023-07-29 11:00] LABS: CHLORIDE 95 mmol/L (98-107); SODIUM 136 mmol/L (136-145)
[2023-07-29 11:04] LABS: ALBUMIN 2.6 g/dl (3.4-5.0); ANION GAP 13 mmol/L (4-13); BLOOD UREA NITROGEN 82.7 mg/dL (7-18); CALCIUM 9.7 mg/dL (8.5-10.1); CO2 28 mmol/L (21-32); GLUCOSE,RANDOM 212 mg/dL (74-106)
[2023-07-29 11:07] LABS: SGOT/AST 28 U/L (15-37); SGPT/ALT 17 U/L (13-61)
[2023-07-29 11:09] LABS: BILIRUBIN,TOTAL 1.6 mg/dL (0.2-1); TOT PROT 6.5 g/dl (6.4-8.2)
[2023-07-29 11:10] LABS: ALK PHOS 363 U/L (45-117)
[2023-07-29 11:21] LABS: CREATININE 7.9 mg/dL (0.55-1.3)
[2023-07-29] MEDS: COLLAGENASE CLOSTRIDIUM HIST. 30 GRAMS TUBE TP SCH (11:21)
[2023-07-29 11:28] LABS: ERYTHROCYTE SEDIMENTATION RATE 82 mm/hr (0-20)
[2023-07-29] MEDS: INSULIN ASPART SLIDING SCALE (NOVOLOG) 1 VIAL SQ SCH ×4 (13:26→22:30)
[2023-07-29] MEDS ORDERED: ERTAPENEM SODIUM 1 GM in SODIUM CHLORIDE 50 ML IVPB SCH (16:00)
[2023-07-29] MEDS: metoPROLOL SUCCINATE 25 MG TAB.SR.24H (FP) PO SCH (22:26)
[2023-07-29] MEDS: DOCUSATE SODIUM 100 MG CAPSULE (FP) PO PRN (22:26)
[2023-07-29] MEDS: ATORVASTATIN CA 40 MG TABLET (FP) PO SCH (22:27)
[2023-07-29] MEDS: VALSARTAN 160 MG TABLET PO SCH (22:27)
[2023-07-29] MEDS: APIXABAN 2.5 MG TABLET PO SCH (22:27)
[2023-07-30] MEDS: INSULIN ASPART SLIDING SCALE (NOVOLOG) 1 VIAL SQ SCH ×4 (06:21→21:30)
[2023-07-30 09:54] LABS: INR 1.34 (0.83-1.09); PROTHROMBIN TIME (PATIENT) 15.5 SEC (9.7-13.0)
[2023-07-30 09:56] LABS: ACTIVATED PTT 33.1 SECONDS (25.2-36.5)
[2023-07-30 10:08] LABS: BASO % 0.6 % (0-2.0); EOS % 1.7 % (0-4.5); HEMATOCRIT 40.2 % (35.4-49); HEMOGLOBIN 12.9 GM/dL (11.7-16.9); LYMPH % 6.1 % (8-40); MCHC 32.2 g/dl (32.0-35.9); MEAN CELL VOLUME 99.5 fl (80-96); MEAN PLT VOLUME 9.9 fl (7.5-11.1); MONO % 8.8 % (3.8-10.2); NEUT % 82.8 % (42.8-82.8); PLATELET COUNT 165 10^3/uL (134-434); RBC 4.04 M/mm3 (4.00-5.60); RDW 15.5 % (11.9-15.9); WHITE BLOOD COUNT 9.7 K/mm3 (4.0-10.0)
[2023-07-30 10:24] LABS: POTASSIUM 5.1 mmol/L (3.5-5.1)
[2023-07-30 10:33] LABS: CALCIUM 8.9 mg/dL (8.5-10.1)
[2023-07-30 10:34] LABS: ALBUMIN 2.5 g/dl (3.4-5.0); BLOOD UREA NITROGEN 62.2 mg/dL (7-18); MAGNESIUM 1.9 mg/dL (1.8-2.4)
[2023-07-30 10:36] LABS: PHOSPHOROUS 5.8 mg/dL (2.5-4.9)
[2023-07-30 10:37] LABS: CREATININE 6.9 mg/dL (0.55-1.3)
[2023-07-30 10:39] LABS: BILIRUBIN,TOTAL 1.2 mg/dL (0.2-1); TOT PROT 6.1 g/dl (6.4-8.2)
[2023-07-30] MEDS ORDERED: LIDOCAINE HCL 1%, 10 MG/ML (20ML VIAL) ONE (10:47)
[2023-07-30] MEDS ORDERED: POVIDONE-IODINE OINTMENT 10% - 28.4 GM TUBE ONE (10:47)
[2023-07-30] MEDS ORDERED: HEPARIN NA (PORCINE) 5,000 UNITS/ML 1ML VIAL ONE ×2 (10:47→11:26)
[2023-07-30] MEDS ORDERED: PROPOFOL 40 ML ONE (10:52)
[2023-07-30] MEDS ORDERED: MIDAZOLAM HCL 2 MG/2 ML SINGLE DOSE VIAL ONE (10:52)
[2023-07-30] MEDS ORDERED: LIDOCAINE HCL/PF 2% SDV 5ML VIAL ONE (10:52)
[2023-07-30] MEDS ORDERED: ceFAZolin SODIUM 1 GM VIAL ONE (11:22)
[2023-07-30] MEDS ORDERED: ceFAZolin SODIUM 1 GM VIAL IVPB ONE (11:24)
[2023-07-30] MEDS ORDERED: ONDANSETRON 4 MG/2 ML VIAL ONE (11:33)
[2023-07-30] MEDS ORDERED: LIDOCAINE HCL 1%, 10 MG/ML (20ML VIAL) INF ONE (12:14)
[2023-07-30] MEDS ORDERED: ONDANSETRON 4 MG/2 ML VIAL IVPUSH PRN (12:31)
[2023-07-30] MEDS ORDERED: ERTAPENEM SODIUM 1 GM in SODIUM CHLORIDE 50 ML IVPB SCH (12:38)
[2023-07-30] MEDS ORDERED: traMADol HCL 50 MG TABLET PO PRN (12:38)
[2023-07-30] MEDS ORDERED: LORazepam 0.5 MG TABLET PO PRN (12:38)
[2023-07-30] MEDS ORDERED: SODIUM CHLORIDE 1,000 ML IV SCH (12:45)
[2023-07-30] MEDS: SEVELAMER CARBONATE 800 MG TAB (FP) PO SCH ×3 (14:44→17:32)
[2023-07-30] MEDS ORDERED: SODIUM CHLORIDE 250 ML IV PRN (15:53)
[2023-07-30] MEDS: DOCUSATE SODIUM 100 MG CAPSULE (FP) PO PRN (17:33)
[2023-07-30] MEDS: ACETAMINOPHEN 500 MG TABLET (FP) PO PRN (17:50)
[2023-07-30] MEDS: FERROUS SO4 325 MG TABLET (FP) PO SCH (20:07)
[2023-07-30] MEDS: FUROSEMIDE 40 MG TABLET (FP) PO SCH (20:08)
[2023-07-30] MEDS: COLLAGENASE CLOSTRIDIUM HIST. 30 GRAMS TUBE TP SCH (20:08)
[2023-07-30] MEDS: metoPROLOL SUCCINATE 25 MG TAB.SR.24H (FP) PO SCH (21:30)
[2023-07-30] MEDS: APIXABAN 2.5 MG TABLET PO SCH (21:30)
[2023-07-30] MEDS: ATORVASTATIN CA 40 MG TABLET (FP) PO SCH (21:30)
[2023-07-30] MEDS: VALSARTAN 160 MG TABLET PO SCH (21:30)
[2023-07-31] MEDS: ACETAMINOPHEN 500 MG TABLET (FP) PO PRN ×2 (02:45→23:31)
[2023-07-31] MEDS: INSULIN ASPART SLIDING SCALE (NOVOLOG) 1 VIAL SQ SCH ×4 (06:36→21:37)
[2023-07-31 08:42] LABS: BASO % 0.8 % (0-2.0); EOS % 1.5 % (0-4.5); HEMATOCRIT 39.1 % (35.4-49); HEMOGLOBIN 12.6 GM/dL (11.7-16.9); LYMPH % 7.1 % (8-40); MCHC 32.2 g/dl (32.0-35.9); MEAN CELL VOLUME 99.4 fl (80-96); MONO % 6.5 % (3.8-10.2); NEUT % 84.1 % (42.8-82.8); PLATELET COUNT 173 10^3/uL (134-434); RBC 3.94 M/mm3 (4.00-5.60); RDW 15.4 % (11.9-15.9); WHITE BLOOD COUNT 10.1 K/mm3 (4.0-10.0)
[2023-07-31] MEDS: SEVELAMER CARBONATE 800 MG TAB (FP) PO SCH ×3 (08:50→16:52)
[2023-07-31 08:59] LABS: CHLORIDE 95 mmol/L (98-107); POTASSIUM 4.8 mmol/L (3.5-5.1); SODIUM 135 mmol/L (136-145)
[2023-07-31 09:00] LABS: CALCIUM 8.7 mg/dL (8.5-10.1)
[2023-07-31 09:01] LABS: ALBUMIN 2.5 g/dl (3.4-5.0); ANION GAP 12 mmol/L (4-13); BLOOD UREA NITROGEN 81.3 mg/dL (7-18); CO2 27 mmol/L (21-32); GLUCOSE,RANDOM 151 mg/dL (74-106)
[2023-07-31 09:04] LABS: SGOT/AST 28 U/L (15-37); SGPT/ALT 18 U/L (13-61)
[2023-07-31 09:06] LABS: TOT PROT 6.2 g/dl (6.4-8.2)
[2023-07-31 09:07] LABS: ALK PHOS 327 U/L (45-117)
[2023-07-31] MEDS: APIXABAN 2.5 MG TABLET PO SCH (09:07)
[2023-07-31] MEDS: FUROSEMIDE 40 MG TABLET (FP) PO SCH (09:08)
[2023-07-31] MEDS: FERROUS SO4 325 MG TABLET (FP) PO SCH (09:08)
[2023-07-31 09:13] LABS: CREATININE 8.6 mg/dL (0.55-1.3)
[2023-07-31] MEDS: COLLAGENASE CLOSTRIDIUM HIST. 30 GRAMS TUBE TP SCH (14:17)
[2023-07-31] MEDS: DOCUSATE SODIUM 100 MG CAPSULE (FP) PO PRN (16:57)
[2023-07-31] MEDS ORDERED: SODIUM CHLORIDE 250 ML IV PRN (18:10)
[2023-07-31] MEDS: ATORVASTATIN CA 40 MG TABLET (FP) PO SCH (21:31)
[2023-07-31] MEDS: metoPROLOL SUCCINATE 25 MG TAB.SR.24H (FP) PO SCH (21:31)
[2023-07-31] MEDS: VALSARTAN 160 MG TABLET PO SCH (21:31)
[2023-07-31] MEDS: HEPARIN NA (PORCINE) 5,000 UNITS/ML 1ML VIAL SQ SCH (21:32)
[2023-08-01] MEDS: HEPARIN NA (PORCINE) 5,000 UNITS/ML 1ML VIAL SQ SCH ×3 (06:24→21:35)
[2023-08-01] MEDS: INSULIN ASPART SLIDING SCALE (NOVOLOG) 1 VIAL SQ SCH ×4 (06:24→21:23)
[2023-08-01] MEDS: SEVELAMER CARBONATE 800 MG TAB (FP) PO SCH ×3 (08:32→17:09)
[2023-08-01 09:29] LABS: BASO % 0.5 % (0-2.0); EOS % 1.8 % (0-4.5); HEMOGLOBIN 11.9 GM/dL (11.7-16.9); LYMPH % 7.6 % (8-40); MCH 32.1 pg (25.7-33.7); MCHC 32.9 g/dl (32.0-35.9); MEAN CELL VOLUME 97.4 fl (80-96); MEAN PLT VOLUME 9.8 fl (7.5-11.1); MONO % 7.3 % (3.8-10.2); NEUT % 82.8 % (42.8-82.8); PLATELET COUNT 165 10^3/uL (134-434); RDW 15.4 % (11.9-15.9); WHITE BLOOD COUNT 8.3 K/mm3 (4.0-10.0)
[2023-08-01 09:48] LABS: POTASSIUM 4.4 mmol/L (3.5-5.1)
[2023-08-01 10:23] LABS: CALCIUM 8.8 mg/dL (8.5-10.1)
[2023-08-01 10:24] LABS: ALBUMIN 2.3 g/dl (3.4-5.0); BLOOD UREA NITROGEN 56.9 mg/dL (7-18)
[2023-08-01 10:28] LABS: BILIRUBIN,TOTAL 0.8 mg/dL (0.2-1); TOT PROT 5.7 g/dl (6.4-8.2)
[2023-08-01] MEDS: FUROSEMIDE 40 MG TABLET (FP) PO SCH ×2 (10:55→14:06)
[2023-08-01] MEDS: FERROUS SO4 325 MG TABLET (FP) PO SCH ×2 (10:55→14:07)
[2023-08-01 12:03] LABS: INR 1.29 (0.83-1.09); PROTHROMBIN TIME (PATIENT) 14.9 SEC (9.7-13.0)
[2023-08-01] MEDS: COLLAGENASE CLOSTRIDIUM HIST. 30 GRAMS TUBE TP SCH (12:18)
[2023-08-01] MEDS ORDERED: VANCOMYCIN/WATER FOR INJ (PEG) 1,000 MG/200 ML BAG IVPB SCH (17:00)
[2023-08-01] MEDS: VALSARTAN 160 MG TABLET PO SCH (21:19)
[2023-08-01] MEDS: ATORVASTATIN CA 40 MG TABLET (FP) PO SCH (21:19)
[2023-08-01] MEDS: metoPROLOL SUCCINATE 25 MG TAB.SR.24H (FP) PO SCH (21:19)
[2023-08-01] MEDS: DOCUSATE SODIUM 100 MG CAPSULE (FP) PO PRN (21:25)
[2023-08-02] MEDS: SEVELAMER CARBONATE 800 MG TAB (FP) PO SCH ×3 (08:24→17:50)
[2023-08-02] MEDS: FERROUS SO4 325 MG TABLET (FP) PO SCH (09:25)
[2023-08-02] MEDS: INSULIN (LEVEMIR) 100 UNITS/ML UNITS SQ SCH ×2 (09:25→11:38)
[2023-08-02] MEDS: FUROSEMIDE 40 MG TABLET (FP) PO SCH (09:25)
[2023-08-02] MEDS: COLLAGENASE CLOSTRIDIUM HIST. 30 GRAMS TUBE TP SCH (09:28)
[2023-08-02] MEDS: INSULIN ASPART SLIDING SCALE (NOVOLOG) 1 VIAL SQ SCH ×3 (11:29→22:23)
[2023-08-02 16:37] LABS: INR 1.26 (0.83-1.09); PROTHROMBIN TIME (PATIENT) 14.6 SEC (9.7-13.0)
[2023-08-02] MEDS: ACETAMINOPHEN 500 MG TABLET (FP) PO PRN (22:11)
[2023-08-02] MEDS: ATORVASTATIN CA 40 MG TABLET (FP) PO SCH (22:12)
[2023-08-02] MEDS: VALSARTAN 160 MG TABLET PO SCH (22:17)
[2023-08-02] MEDS: metoPROLOL SUCCINATE 25 MG TAB.SR.24H (FP) PO SCH (22:17)
[2023-08-03] MEDS: DOCUSATE SODIUM 100 MG CAPSULE (FP) PO PRN ×2 (00:01→23:14)
[2023-08-03] MEDS: INSULIN ASPART SLIDING SCALE (NOVOLOG) 1 VIAL SQ SCH ×4 (07:08→22:55)
[2023-08-03] MEDS ORDERED: BUPIVACAINE HCL/PF 0.5% (5MG/ML) 10 ML VIAL ONE ×2 (08:31→11:15)
[2023-08-03] MEDS ORDERED: LIDOCAINE HCL 2% (20ML MULTI-DOSE VIAL) ONE (08:46)
[2023-08-03] MEDS ORDERED: GENTAMICIN SO4 80 MG/2 ML VIAL ONE ×2 (08:46→11:15)
[2023-08-03] MEDS: FERROUS SO4 325 MG TABLET (FP) PO SCH (10:21)
[2023-08-03] MEDS: FUROSEMIDE 40 MG TABLET (FP) PO SCH (10:21)
[2023-08-03] MEDS: SEVELAMER CARBONATE 800 MG TAB (FP) PO SCH ×3 (10:22→17:08)
[2023-08-03] MEDS ORDERED: LIDOCAINE HCL/PF 2% SDV 5ML VIAL INF ONE (10:22)
[2023-08-03 10:23] LABS: BASO % 0.9 % (0-2.0); EOS % 3.4 % (0-4.5); HEMOGLOBIN 13.3 GM/dL (11.7-16.9); LYMPH % 10.1 % (8-40); MCH 32.1 pg (25.7-33.7); MCHC 32.4 g/dl (32.0-35.9); MEAN CELL VOLUME 99.1 fl (80-96); MEAN PLT VOLUME 9.7 fl (7.5-11.1); MONO % 6.4 % (3.8-10.2); NEUT % 79.2 % (42.8-82.8); PLATELET COUNT 251 10^3/uL (134-434); RBC 4.13 M/mm3 (4.00-5.60); RDW 15.2 % (11.9-15.9); WHITE BLOOD COUNT 8.8 K/mm3 (4.0-10.0)
[2023-08-03] MEDS ORDERED: BUPIVACAINE HCL/PF 0.5% (5 MG/ML) 30 ML VIAL IJ ONE (10:24)
[2023-08-03] MEDS ORDERED: GENTAMICIN SO4 80 MG/2 ML VIAL IVPB ONE (10:25)
[2023-08-03 10:51] LABS: CHLORIDE 98 mmol/L (98-107); POTASSIUM 5.2 mmol/L (3.5-5.1); SODIUM 138 mmol/L (136-145)
[2023-08-03 10:53] LABS: CALCIUM 9.3 mg/dL (8.5-10.1)
[2023-08-03 10:54] LABS: ALBUMIN 2.7 g/dl (3.4-5.0); ANION GAP 12 mmol/L (4-13); BLOOD UREA NITROGEN 54.1 mg/dL (7-18); CO2 28 mmol/L (21-32); GLUCOSE,RANDOM 155 mg/dL (74-106)
[2023-08-03 10:57] LABS: SGOT/AST 36 U/L (15-37); SGPT/ALT 25 U/L (13-61)
[2023-08-03 10:58] LABS: TOT PROT 6.7 g/dl (6.4-8.2)
[2023-08-03 10:59] LABS: BILIRUBIN,TOTAL 1.2 mg/dL (0.2-1)
[2023-08-03 11:06] LABS: ALK PHOS 329 U/L (45-117); CREATININE 7.5 mg/dL (0.55-1.3)
[2023-08-03] MEDS ORDERED: LIDOCAINE HCL 1%, 10 MG/ML (20ML VIAL) ONE (11:15)
[2023-08-03] MEDS ORDERED: MIDAZOLAM HCL 2 MG/2 ML SINGLE DOSE VIAL ONE ×2 (11:27→11:56)
[2023-08-03] MEDS ORDERED: ONDANSETRON 4 MG/2 ML VIAL ONE (11:56)
[2023-08-03] MEDS: INSULIN (LEVEMIR) 100 UNITS/ML UNITS SQ SCH ×2 (12:49→16:30)
[2023-08-03] MEDS: COLLAGENASE CLOSTRIDIUM HIST. 30 GRAMS TUBE TP SCH (12:50)
[2023-08-03] MEDS ORDERED: ERTAPENEM SODIUM 1 GM in SODIUM CHLORIDE 50 ML IVPB SCH (13:25)
[2023-08-03] MEDS ORDERED: SODIUM CHLORIDE 250 ML IV PRN (13:57)
[2023-08-03] MEDS ORDERED: INSULIN (LEVEMIR) 100 UNITS/ML UNITS SQ SCH (14:00)
[2023-08-03] MEDS ORDERED: SODIUM ZIRCONIUM CYCLOSILICATE (LOKELMA) 5 GM PACKET PO SCH (14:00)
[2023-08-03] MEDS ORDERED: INSULIN ASPART SLIDING SCALE (NOVOLOG) 1 VIAL SQ ONE (16:17)
[2023-08-03] MEDS: SODIUM ZIRCONIUM CYCLOSILICATE (LOKELMA) 5 GM PACKET PO ONE ×2 (16:30→16:31)
[2023-08-03] MEDS ORDERED: metoPROLOL SUCCINATE 25 MG TAB.SR.24H (FP) PO SCH (22:00)
[2023-08-03] MEDS: ATORVASTATIN CA 40 MG TABLET (FP) PO SCH (22:59)
[2023-08-03] MEDS: VALSARTAN 160 MG TABLET PO SCH (22:59)
[2023-08-03] MEDS: ACETAMINOPHEN 500 MG TABLET (FP) PO PRN (23:13)
[2023-08-04] MEDS: INSULIN (LEVEMIR) 100 UNITS/ML UNITS SQ SCH (07:08)
[2023-08-04] MEDS: INSULIN ASPART SLIDING SCALE (NOVOLOG) 1 VIAL SQ SCH ×4 (07:10→22:13)
[2023-08-04] MEDS: SEVELAMER CARBONATE 800 MG TAB (FP) PO SCH ×3 (08:41→17:53)
[2023-08-04 09:52] LABS: BASO % 0.7 % (0-2.0); EOS % 2.8 % (0-4.5); HEMATOCRIT 35.9 % (35.4-49); HEMOGLOBIN 11.9 GM/dL (11.7-16.9); LYMPH % 8.2 % (8-40); MCH 32.3 pg (25.7-33.7); MCHC 33.1 g/dl (32.0-35.9); MEAN CELL VOLUME 97.5 fl (80-96); MEAN PLT VOLUME 9.9 fl (7.5-11.1); MONO % 7.9 % (3.8-10.2); NEUT % 80.4 % (42.8-82.8); PLATELET COUNT 243 10^3/uL (134-434); RBC 3.68 M/mm3 (4.00-5.60); RDW 15.3 % (11.9-15.9); WHITE BLOOD COUNT 9.1 K/mm3 (4.0-10.0)
[2023-08-04 09:58] LABS: CHLORIDE 98 mmol/L (98-107); POTASSIUM 5.2 mmol/L (3.5-5.1); SODIUM 135 mmol/L (136-145)
[2023-08-04 10:15] LABS: ALBUMIN 2.5 g/dl (3.4-5.0); ANION GAP 9 mmol/L (4-13); CO2 28 mmol/L (21-32); GLUCOSE,RANDOM 205 mg/dL (74-106)
[2023-08-04 10:18] LABS: SGOT/AST 29 U/L (15-37); SGPT/ALT 20 U/L (13-61)
[2023-08-04 10:20] LABS: BILIRUBIN,TOTAL 1.1 mg/dL (0.2-1); TOT PROT 6.1 g/dl (6.4-8.2)
[2023-08-04 10:30] LABS: ALK PHOS 292 U/L (45-117); CREATININE 8.4 mg/dL (0.55-1.3)
[2023-08-04] MEDS: FUROSEMIDE 40 MG TABLET (FP) PO SCH (12:48)
[2023-08-04] MEDS: FERROUS SO4 325 MG TABLET (FP) PO SCH (12:48)
[2023-08-04] MEDS: CEFTRIAXONE 2 GM in DEXTROSE 5%-WATER 100 ML IVPB SCH (15:29)
[2023-08-04] MEDS: VALSARTAN 160 MG TABLET PO SCH (22:16)
[2023-08-04] MEDS: LORazepam 0.5 MG TABLET PO PRN (22:16)
[2023-08-04] MEDS: DOCUSATE SODIUM 100 MG CAPSULE (FP) PO PRN (22:16)
[2023-08-04] MEDS: ATORVASTATIN CA 40 MG TABLET (FP) PO SCH (22:17)
[2023-08-05 03:40] VITALS: RESP 18
[2023-08-05] MEDS: INSULIN ASPART SLIDING SCALE (NOVOLOG) 1 VIAL SQ SCH ×4 (07:02→21:57)
[2023-08-05] MEDS: INSULIN (LEVEMIR) 100 UNITS/ML UNITS SQ SCH (07:02)
[2023-08-05] MEDS: CEFTRIAXONE 2 GM in DEXTROSE 5%-WATER 100 ML IVPB SCH (10:13)
[2023-08-05] MEDS: FUROSEMIDE 40 MG TABLET (FP) PO SCH (10:13)
[2023-08-05] MEDS: FERROUS SO4 325 MG TABLET (FP) PO SCH (10:13)
[2023-08-05] MEDS: SEVELAMER CARBONATE 800 MG TAB (FP) PO SCH ×5 (10:13→17:57)
[2023-08-05] MEDS: DOCUSATE SODIUM 100 MG CAPSULE (FP) PO PRN ×2 (11:08→21:56)
[2023-08-05] MEDS: ACETAMINOPHEN 500 MG TABLET (FP) PO PRN (21:55)
[2023-08-05] MEDS: ATORVASTATIN CA 40 MG TABLET (FP) PO SCH (21:56)
[2023-08-05] MEDS: APIXABAN 2.5 MG TABLET PO SCH (21:56)
[2023-08-05] MEDS: LORazepam 0.5 MG TABLET PO PRN (21:59)
[2023-08-06] MEDS: INSULIN (LEVEMIR) 100 UNITS/ML UNITS SQ SCH (06:27)
[2023-08-06] MEDS: INSULIN ASPART SLIDING SCALE (NOVOLOG) 1 VIAL SQ SCH ×4 (06:29→21:52)
[2023-08-06] MEDS: SEVELAMER CARBONATE 800 MG TAB (FP) PO SCH ×4 (08:12→13:16)
[2023-08-06 09:22] LABS: BASO % 0.9 % (0-2.0); EOS % 5.1 % (0-4.5); HEMATOCRIT 35.4 % (35.4-49); HEMOGLOBIN 11.7 GM/dL (11.7-16.9); LYMPH % 7.9 % (8-40); MCH 32.5 pg (25.7-33.7); MCHC 33.1 g/dl (32.0-35.9); MEAN PLT VOLUME 9.3 fl (7.5-11.1); MONO % 9.2 % (3.8-10.2); NEUT % 76.9 % (42.8-82.8); PLATELET COUNT 228 10^3/uL (134-434); RBC 3.61 M/mm3 (4.00-5.60); RDW 15.1 % (11.9-15.9); WHITE BLOOD COUNT 7.9 K/mm3 (4.0-10.0)
[2023-08-06] MEDS ORDERED: SODIUM CHLORIDE 250 ML IV PRN (09:36)
[2023-08-06 09:48] LABS: CHLORIDE 98 mmol/L (98-107); POTASSIUM 4.5 mmol/L (3.5-5.1); SODIUM 136 mmol/L (136-145)
[2023-08-06 10:00] LABS: CALCIUM 9.1 mg/dL (8.5-10.1)
[2023-08-06 10:01] LABS: ALBUMIN 2.5 g/dl (3.4-5.0); ANION GAP 12 mmol/L (4-13); BLOOD UREA NITROGEN 56.4 mg/dL (7-18); CO2 25 mmol/L (21-32); GLUCOSE,RANDOM 198 mg/dL (74-106)
[2023-08-06 10:03] LABS: SGPT/ALT 21 U/L (13-61)
[2023-08-06 10:04] LABS: SGOT/AST 26 U/L (15-37); TOT PROT 6.1 g/dl (6.4-8.2)
[2023-08-06 10:06] LABS: BILIRUBIN,TOTAL 0.9 mg/dL (0.2-1)
[2023-08-06 10:08] LABS: ALK PHOS 278 U/L (45-117)
[2023-08-06 10:11] LABS: CREATININE 7.9 mg/dL (0.55-1.3)
[2023-08-06] MEDS ORDERED: CEFAZOLIN 2 GM in DEXTROSE 5%-WATER - 50 ML IVPB ONE (13:00)
[2023-08-06] MEDS: FERROUS SO4 325 MG TABLET (FP) PO SCH (13:05)
[2023-08-06] MEDS: FUROSEMIDE 40 MG TABLET (FP) PO SCH (13:06)
[2023-08-06] MEDS: APIXABAN 2.5 MG TABLET PO SCH ×2 (13:06→21:51)
[2023-08-06] MEDS ORDERED: VANCOMYCIN/WATER FOR INJ (PEG) 1 GM/200 ML BAG IVPB ONE (16:08)
[2023-08-06] MEDS: ATORVASTATIN CA 40 MG TABLET (FP) PO SCH (21:51)
[2023-08-06] MEDS: ACETAMINOPHEN 500 MG TABLET (FP) PO PRN (21:51)
[2023-08-06] MEDS: LORazepam 0.5 MG TABLET PO PRN (21:56)
[2023-08-07] MEDS: INSULIN (LEVEMIR) 100 UNITS/ML UNITS SQ SCH (06:28)
[2023-08-07] MEDS: INSULIN ASPART SLIDING SCALE (NOVOLOG) 1 VIAL SQ SCH (06:49)
[2023-08-07] MEDS: SEVELAMER CARBONATE 800 MG TAB (FP) PO SCH (09:14)
[2023-08-07] MEDS: APIXABAN 2.5 MG TABLET PO SCH (09:21)
[2023-08-07] MEDS: FERROUS SO4 325 MG TABLET (FP) PO SCH (09:21)
[2023-08-07] MEDS: FUROSEMIDE 40 MG TABLET (FP) PO SCH (09:21)
[2023-08-07 10:22] VITALS: BP 170/69; PULSE 72; TEMP 98.5
== END 2023-08-07 10:33 | disposition home or self-care (01) | DRG 270 ==
LOC: JER 07:39 → JERBED 11:32 → J5S 07-25 18:48 → J6S 07-28 13:38
PROVIDERS: ADMIT Family Medicine; ATTEND Internal Medicine
PROC: 5A1D70Z Performance of Urinary Filtration, Intermittent, Less than 6 Hours Per Day (ICD-10-PCS; 2023-07-25)
PROC: 5A1D70Z Performance of Urinary Filtration, Intermittent, Less than 6 Hours Per Day (ICD-10-PCS; 2023-07-27)
PROC: 5A1D70Z Performance of Urinary Filtration, Intermittent, Less than 6 Hours Per Day (ICD-10-PCS; 2023-07-28)
PROC: 5A1D70Z Performance of Urinary Filtration, Intermittent, Less than 6 Hours Per Day (ICD-10-PCS; 2023-07-29)
PROC: 04CL3ZZ Extirpation of Matter from Left Femoral Artery, Percutaneous Approach (ICD-10-PCS; 2023-07-30)
PROC: B40GYZZ Plain Radiography of Left Lower Extremity Arteries using Other Contrast (ICD-10-PCS; 2023-07-30)
PROC: B40DYZZ Plain Radiography of Aorta and Bilateral Lower Extremity Arteries using Other Contrast (ICD-10-PCS; 2023-07-30)
PROC: 047L3Z1 Dilation of Left Femoral Artery using Drug-Coated Balloon, Percutaneous Approach (ICD-10-PCS; principal; 2023-07-30 11:30)
PROC: 5A1D70Z Performance of Urinary Filtration, Intermittent, Less than 6 Hours Per Day (ICD-10-PCS; 2023-07-31)
PROC: 5A1D70Z Performance of Urinary Filtration, Intermittent, Less than 6 Hours Per Day (ICD-10-PCS; 2023-08-01)
PROC: 0QBP0Z2 Excision of Left Metatarsal, Sesamoid Bone(s) 1st Toe, Open Approach (ICD-10-PCS; 2023-08-03)
PROC: 0QBP0ZZ Excision of Left Metatarsal, Open Approach (ICD-10-PCS; 2023-08-03)
PROC: 5A1D70Z Performance of Urinary Filtration, Intermittent, Less than 6 Hours Per Day (ICD-10-PCS; 2023-08-06)
DX: E11.51 Type 2 diabetes mellitus with diabetic peripheral angiopathy without gangrene (principal); N18.6 End stage renal disease; F13.20 Sedative, hypnotic or anxiolytic dependence, uncomplicated; I12.0 Hypertensive chronic kidney disease with stage 5 chronic kidney disease or end stage renal disease; L03.116 Cellulitis of left lower limb; L03.115 Cellulitis of right lower limb; M86.272 Subacute osteomyelitis, left ankle and foot; E11.69 Type 2 diabetes mellitus with other specified complication; H91.91 Unspecified hearing loss, right ear; E11.621 Type 2 diabetes mellitus with foot ulcer; L97.519 Non-pressure chronic ulcer of other part of right foot with unspecified severity; L97.528 Non-pressure chronic ulcer of other part of left foot with other specified severity; I25.10 Atherosclerotic heart disease of native coronary artery without angina pectoris; E11.65 Type 2 diabetes mellitus with hyperglycemia; I48.91 Unspecified atrial fibrillation; E11.22 Type 2 diabetes mellitus with diabetic chronic kidney disease; I45.10 Unspecified right bundle-branch block; E78.5 Hyperlipidemia, unspecified; I70.298 Other atherosclerosis of native arteries of extremities, other extremity; B95.2 Enterococcus as the cause of diseases classified elsewhere; B96.1 Klebsiella pneumoniae [K. pneumoniae] as the cause of diseases classified elsewhere; E87.5 Hyperkalemia; Z95.1 Presence of aortocoronary bypass graft; Z99.2 Dependence on renal dialysis
CPT/HCPCS: 36415; 73630-TC-LT; 73630-TC-RT-FY; 73718-TC-LT; 73718-TC-RT; 75635-TC; 76000-TC-FY; 76705-TC; 80048; 80053; 82248; 82962; 82977; 83735; 84100; 85025; 85610; 85651; 85730; 86140; 86704; 86803; 86850; 86900; 86901; 87040; 87070; 87186; 87205; 87340; 87517; 88304-TC; 88311-TC; 93005; 93010; 93926-TC; 94760; 97116-GP; 97162-GP; 99285-25; C1760; C1769; C1897; C2623; G0463-25; G0480; J1644; Q9967

== ENCOUNTER 2023-09-24 15:28 | Inpatient (IN) | payer OTHER, BC ==
[2023-09-24 15:57] VITALS: BMI 31.1
[2023-09-24 17:09] LABS: VENOUS O2 SATURATION 69.6 % (70-80); VENOUS PCO2 44.2 mmHg (38-52); VENOUS PH 7.459 (7.310-7.410)
[2023-09-24 17:13] LABS: BASO % 0.6 % (0-2.0); EOS % 0.8 % (0-4.5); HEMATOCRIT 37.6 % (35.4-49); HEMOGLOBIN 12.7 GM/dL (11.7-16.9); LYMPH % 2.3 % (8-40); MCH 33.7 pg (25.7-33.7); MCHC 33.9 g/dl (32.0-35.9); MEAN CELL VOLUME 99.3 fl (80-96); MEAN PLT VOLUME 9.1 fl (7.5-11.1); MONO % 9.4 % (3.8-10.2); NEUT % 86.9 % (42.8-82.8); PLATELET COUNT 175 10^3/uL (134-434); RBC 3.78 M/mm3 (4.00-5.60); RDW 16.3 % (11.9-15.9); WHITE BLOOD COUNT 10.1 K/mm3 (4.0-10.0)
[2023-09-24 17:20] LABS: INR 1.54 (0.83-1.09); PROTHROMBIN TIME (PATIENT) 17.8 SEC (9.7-13.0)
[2023-09-24 17:23] LABS: ACTIVATED PTT 36.3 SECONDS (25.2-36.5)
[2023-09-24] MEDS ORDERED: ACETAMINOPHEN INJECTION 100 ML IVPB ONE (17:24)
[2023-09-24] MEDS ORDERED: PIPERACILLIN/TAZOB 4.5 GM 4.5 GM/100 ML BAG IVPB ONE (17:25)
[2023-09-24] MEDS: ACETAMINOPHEN 1000 MG/100 ML BAG IVPB ONE (17:30)
[2023-09-24] MEDS: PIPERACILLIN/TAZOBACTAM 4.5 GM VIAL IVPB ONE (17:30)
[2023-09-24 17:34] LABS: POTASSIUM 4.4 mmol/L (3.5-5.1)
[2023-09-24 17:36] LABS: ALBUMIN 2.9 g/dl (3.4-5.0); CALCIUM 8.5 mg/dL (8.5-10.1)
[2023-09-24 17:39] LABS: CREATININE 4.6 mg/dL (0.55-1.3)
[2023-09-24 17:41] LABS: BILIRUBIN,TOTAL 2.4 mg/dL (0.2-1); TOT PROT 7.1 g/dl (6.4-8.2)
[2023-09-24] MEDS ORDERED: VANCOMYCIN 1 GRAM (PRE-DOCKED) 1,000 MG/250 ML BAG IVPB ONE (18:22)
[2023-09-24] MEDS: VANCOMYCIN 1,000 MG in DEXTROSE 5%-WATER - 250 ML IVPB ONE (18:29)
[2023-09-24] MEDS ORDERED: DEXAMETHASONE SOD PHOSPHATE 10 MG/1 ML VIAL ONE (18:33)
[2023-09-24] MEDS: DEXAMETHASONE SOD PHOSPHATE 10 MG/1 ML VIAL IVPUSH ONE (18:36)
[2023-09-24] MEDS ORDERED: FUROSEMIDE 40 MG/4 ML INJECTABLE VIAL ONE (19:43)
[2023-09-24] MEDS: REMDESIVIR 200 MG in SODIUM CHLORIDE 250 ML IVPB ONE (19:56)
[2023-09-24 19:58] VITALS: BP 136/72; PULSE 83; RESP 18; TEMP 98.9
[2023-09-24] MEDS: FUROSEMIDE 40 MG/4 ML INJECTABLE VIAL IVPUSH ONE (19:58)
[2023-09-24] MEDS ORDERED: LORazepam 0.5 MG TABLET PO PRN (21:23)
[2023-09-24] MEDS ORDERED: metoPROLOL SUCCINATE 25 MG TAB.SR.24H (FP) PO ONE (21:48)
[2023-09-24] MEDS ORDERED: APIXABAN 2.5 MG TABLET ONE (21:48)
[2023-09-24] MEDS ORDERED: ATORVASTATIN CA 40 MG TABLET (FP) ONE (21:48)
[2023-09-24] MEDS ORDERED: VALSARTAN 80 MG TABLET ONE (21:48)
[2023-09-24 21:51] LABS: EPI CELLS 22 /uL (0-25.1); HYALINE CASTS 1 /uL (0-3.1); URINE APPEARANCE CLEAR; URINE BACTERIA 4 /uL (0-1359); URINE BILIRUBIN NEGATIVE (NEGATIVE); URINE COLOR DK YELLOW; URINE GLUCOSE (UA) 1+ (NEGATIVE); URINE KETONE NEGATIVE (NEGATIVE); URINE LEUK ESTERASE NEGATIVE (NEGATIVE); URINE NITRITE NEGATIVE (NEGATIVE); URINE PROTEIN 4+ (NEGATIVE); URINE RBC 18 /uL (0-23.9); URINE UROBILINOGEN 0.2 mg/dL (0.2-1.0); URINE WBC 30 /uL (0-25.8)
[2023-09-24] MEDS: metoPROLOL SUCCINATE 25 MG TAB.SR.24H (FP) PO SCH (21:52)
[2023-09-24] MEDS: APIXABAN 2.5 MG TABLET PO SCH (21:52)
[2023-09-24] MEDS: VALSARTAN 160 MG TABLET PO SCH (21:52)
[2023-09-24] MEDS: ATORVASTATIN CA 40 MG TABLET (FP) PO SCH (21:52)
[2023-09-24] MEDS ORDERED: HEPARIN NA (PORCINE) 5,000 UNITS/ML 1ML VIAL SQ SCH (22:00)
[2023-09-25] MEDS: FUROSEMIDE 40 MG/4 ML INJECTABLE VIAL IVPUSH SCH (01:49)
[2023-09-25] MEDS ORDERED: INSULIN ASPART SLIDING SCALE (NOVOLOG) 1 VIAL SQ SCH (07:00)
[2023-09-25] MEDS ORDERED: DEXAMETHASONE 4 MG TABLET (FP) PO SCH (10:00)
[2023-09-25] MEDS ORDERED: REMDESIVIR 100 MG in SODIUM CHLORIDE 250 ML IVPB SCH (10:00)
== END 2023-09-25 01:53 | disposition left against medical advice (07) | DRG 871 ==
LOC: JER 15:28 → JERBED 19:17
PROVIDERS: ADMIT Internal Medicine; ATTEND Internal Medicine
PROC: XW033E5 Introduction of Remdesivir Anti-infective into Peripheral Vein, Percutaneous Approach, New Technology Group 5 (ICD-10-PCS; principal; 2023-09-24)
DX: A41.9 Sepsis, unspecified organism (principal); J96.01 Acute respiratory failure with hypoxia; N18.6 End stage renal disease; U07.1 COVID-19; I13.2 Hypertensive heart and chronic kidney disease with heart failure and with stage 5 chronic kidney disease, or end stage renal disease; J44.1 Chronic obstructive pulmonary disease with (acute) exacerbation; N17.9 Acute kidney failure, unspecified; J90 Pleural effusion, not elsewhere classified; E11.51 Type 2 diabetes mellitus with diabetic peripheral angiopathy without gangrene; Z99.2 Dependence on renal dialysis; E11.22 Type 2 diabetes mellitus with diabetic chronic kidney disease; I48.91 Unspecified atrial fibrillation; I25.10 Atherosclerotic heart disease of native coronary artery without angina pectoris; E78.5 Hyperlipidemia, unspecified; Z95.1 Presence of aortocoronary bypass graft
CPT/HCPCS: 0241U-QW; 36415; 71045-TC-FY; 71250-TC; 80053; 81003; 82550; 82803; 82962; 83605; 83880; 84484; 85025; 85610; 85730; 86850; 86900; 86901; 87040; 87086; 93005; 93010; 97597; 99285-25; A6022; G0277; J0131; J0248; J1100

== ENCOUNTER 2023-09-25 14:45 | Emergency (ER) | payer OTHER, BC ==
[2023-09-25 14:54] VITALS: BP 132/60; PULSE 78; RESP 18; TEMP 99.2; BMI 31.1
== END 2023-09-25 17:30 | disposition home or self-care (01) ==
LOC: JER 14:45
DX: R53.1 Weakness (principal); U07.1 COVID-19
CPT/HCPCS: 93308; 99284-25

== ENCOUNTER 2024-10-13 15:03 | Inpatient (IN) | payer OTHER, BC ==
[2024-10-13] MEDS: ACETAMINOPHEN 1000 MG/100 ML BAG IVPB ONE (16:08)
[2024-10-13 16:31] LABS: ABSOLUTE IMMATURE GRANULOCYTES 0.04 x10^3/uL (0.0-0.031); BASOPHILS # 0.07 x10^3/uL (0.01-0.08); EOSINOPHIL % 9.5 % (0.8-7.0); EOSINOPHILS # 0.88 x10^3/uL (0.04-0.54); HEMATOCRIT 39.1 % (40.1-51.0); HEMOGLOBIN 12.4 g/dL (13.7-17.5); MCHC 31.7 g/dl (32.3-36.5); MEAN CELL VOLUME 98.2 fl (79.0-92.2); MEAN PLT VOLUME 11.3 fl (9.4-12.4); MONOCYTE # 0.77 x10^3/uL (0.30-0.82); MONOCYTE % 8.3 % (5.3-12.2); PLATELET COUNT # 208 x10^3/uL (163-337); RDW 14.2 % (12.2-16.4)
[2024-10-13 16:34] LABS: INR 1.49 (0.83-1.09); PROTHROMBIN TIME (PATIENT) 16.4 SEC (9.7-13.0)
[2024-10-13] MEDS ORDERED: CEFEPIME HCL/D5W 1 GM/50 ML BAG IVPB ONE (16:41)
[2024-10-13] MEDS: CEFEPIME HCL 1 GM VIAL (RESTRICTED TO ID) IVPB ONE (16:41)
[2024-10-13] MEDS: VANCOMYCIN 1,000 MG in DEXTROSE 5%-WATER - 250 ML IVPB ONE (16:42)
[2024-10-13 16:45] LABS: POTASSIUM 4.7 mmol/L (3.5-5.1)
[2024-10-13 16:47] LABS: CALCIUM 9.9 mg/dL (8.5-10.1)
[2024-10-13 16:48] LABS: ALBUMIN 3.2 g/dl (3.4-5.0); BLOOD UREA NITROGEN 62.2 mg/dL (7-18)
[2024-10-13 16:51] LABS: CREATININE 7.2 mg/dL (0.55-1.3)
[2024-10-13 16:52] LABS: BILIRUBIN,TOTAL 0.9 mg/dL (0.2-1); TOT PROT 7.2 g/dl (6.4-8.2)
[2024-10-13 17:18] LABS: ERYTHROCYTE SEDIMENTATION RATE 36 mm/hr (0-20)
[2024-10-13] MEDS ORDERED: PIPERACILLIN/TAZOB 2.25 GM 2.25 GM/50 ML BAG IVPB ONE (18:06)
[2024-10-13] MEDS: PIPERACILLIN/TAZOB 2.25 GM 2.25 GM in DEXTROSE 5%-WATER - 50 ML IVPB SCH (18:16)
[2024-10-13] MEDS: INSULIN (NOVOLOG) ASPART 100 UNITS/ML 10ML VIAL SQ ONE (18:16)
[2024-10-13] MEDS: COLLAGENASE CLOSTRIDIUM HIST. 30 GRAMS TUBE TP SCH (19:34)
[2024-10-13] MEDS ORDERED: ACETAMINOPHEN 325 MG TABLET (FP) PO PRN (21:33)
[2024-10-14 00:58] VITALS: BMI 27.2
[2024-10-14] MEDS: ACETAMINOPHEN 500 MG TABLET (FP) PO PRN (01:29)
[2024-10-14] MEDS: DOCUSATE SODIUM 100 MG CAPSULE (FP) PO PRN (01:31)
[2024-10-14] MEDS: INSULIN ASPART SLIDING SCALE (NOVOLOG) 1 VIAL SQ SCH (07:43)
[2024-10-14] MEDS: SEVELAMER CARBONATE 800 MG TAB (FP) PO SCH (08:14)
[2024-10-14 09:21] LABS: ABSOLUTE IMMATURE GRANULOCYTES 0.03 x10^3/uL (0.0-0.031); BASOPHILS # 0.07 x10^3/uL (0.01-0.08); EOSINOPHIL % 12.5 % (0.8-7.0); EOSINOPHILS # 1.11 x10^3/uL (0.04-0.54); HEMATOCRIT 38.1 % (40.1-51.0); HEMOGLOBIN 12.1 g/dL (13.7-17.5); MCHC 31.8 g/dl (32.3-36.5); MEAN CELL VOLUME 97.7 fl (79.0-92.2); MEAN PLT VOLUME 11.2 fl (9.4-12.4); MONOCYTE # 0.92 x10^3/uL (0.30-0.82); MONOCYTE % 10.3 % (5.3-12.2); PLATELET COUNT # 194 x10^3/uL (163-337); RDW 14.1 % (12.2-16.4)
[2024-10-14 09:50] LABS: POTASSIUM 4.8 mmol/L (3.5-5.1)
[2024-10-14] MEDS ORDERED: APIXABAN 2.5 MG TABLET PO SCH (10:00)
[2024-10-14 10:06] LABS: CALCIUM 10.1 mg/dL (8.5-10.1)
[2024-10-14 10:07] LABS: MAGNESIUM 2.3 mg/dL (1.8-2.4)
[2024-10-14] MEDS: LIDOCAINE 4% PATCH TP SCH (10:09)
[2024-10-14] MEDS: APIXABAN 2.5 MG TABLET PO SCH (10:09)
[2024-10-14] MEDS: CARVEDILOL 12.5 MG TABLET (FP) PO SCH (10:09)
[2024-10-14 10:10] LABS: PHOSPHOROUS 6.1 mg/dL (2.5-4.9)
[2024-10-14 10:14] LABS: CREATININE 7.4 mg/dL (0.55-1.3)
[2024-10-14] MEDS: FAMOTIDINE 10 MG TABLET PO SCH (11:13)
[2024-10-14] MEDS: FAMOTIDINE 20 MG TABLET PO SCH (16:12)
[2024-10-14] MEDS ORDERED: SODIUM CHLORIDE 250 ML IV PRN (16:19)
[2024-10-14] MEDS: ACETAMINOPHEN 1000 MG/100 ML BAG IVPB PRN (18:41)
[2024-10-14] MEDS: LORazepam 0.5 MG TABLET PO PRN (18:42)
[2024-10-14] MEDS ORDERED: GABAPENTIN 100 MG CAPSULE PO SCH (22:00)
[2024-10-14] MEDS: GABAPENTIN 100 MG CAPSULE PO SCH (22:08)
[2024-10-14] MEDS: ATORVASTATIN CA 40 MG TABLET (FP) PO SCH (22:08)
[2024-10-14] MEDS: LIDOCAINE PATCH REMOVAL MC SCH (22:09)
[2024-10-15] MEDS: ACETAMINOPHEN 500 MG TABLET (FP) PO PRN (01:12)
[2024-10-15 08:54] LABS: ABSOLUTE IMMATURE GRANULOCYTES 0.04 x10^3/uL (0.0-0.031); BASOPHILS # 0.07 x10^3/uL (0.01-0.08); EOSINOPHIL % 12.5 % (0.8-7.0); EOSINOPHILS # 0.98 x10^3/uL (0.04-0.54); HEMATOCRIT 37.8 % (40.1-51.0); MCHC 31.7 g/dl (32.3-36.5); MEAN CELL VOLUME 96.2 fl (79.0-92.2); MEAN PLT VOLUME 11.8 fl (9.4-12.4); MONOCYTE # 0.62 x10^3/uL (0.30-0.82); MONOCYTE % 7.9 % (5.3-12.2); PLATELET COUNT # 175 x10^3/uL (163-337); RDW 13.9 % (12.2-16.4)
[2024-10-15 09:09] LABS: CHLORIDE 89 mmol/L (98-107); SODIUM 129 mmol/L (136-145)
[2024-10-15 09:16] LABS: ALBUMIN 2.8 g/dl (3.4-5.0); ANION GAP 11 mmol/L (4-13); BLOOD UREA NITROGEN 80.3 mg/dL (7-18); CALCIUM 9.9 mg/dL (8.5-10.1); CO2 29 mmol/L (21-32); GLUCOSE,RANDOM 214 mg/dL (74-106); MAGNESIUM 2.2 mg/dL (1.8-2.4)
[2024-10-15 09:19] LABS: PHOSPHOROUS 6.6 mg/dL (2.5-4.9); SGOT/AST 10 U/L (15-37); SGPT/ALT 7 U/L (13-61); TOT PROT 6.5 g/dl (6.4-8.2)
[2024-10-15 09:22] LABS: ALK PHOS 158 U/L (45-117); CREATININE 8.4 mg/dL (0.55-1.3)
[2024-10-15] MEDS: VANCOMYCIN/WATER FOR INJ (PEG) 1,000 MG/200 ML BAG IVPB ONE (10:59)
[2024-10-15] MEDS: MINERAL OIL/PET HY-PHL TOPICAL OINTMENT 454 GM JAR TP SCH (12:29)
[2024-10-15] MEDS ORDERED: VANCOMYCIN/WATER FOR INJ (PEG) 1,000 MG/200 ML BAG IVPB ONE (12:30)
[2024-10-15] MEDS: POLYETHYLENE GLYCOL (HEALTHYLAX) 3350 17 GM PACKET PO PRN (12:38)
[2024-10-15 14:29] LABS: HCV DIAGNOSTIC IN-HOUSE W/RFLX NON-REACTIVE (NONREACTIVE)
[2024-10-15] MEDS ORDERED: HEPARIN NA (PORCINE) 5,000 UNITS/ML 1ML VIAL IVPUSH ONE (16:19)
[2024-10-15] MEDS ORDERED: INSULIN (LEVEMIR) 100 UNITS/ML UNITS SQ SCH (22:00)
[2024-10-15] MEDS: INSULIN GLARGINE (LANTUS) 100 UNITS/ML UNITS SQ SCH (22:03)
[2024-10-16 08:41] LABS: ABSOLUTE IMMATURE GRANULOCYTES 0.04 x10^3/uL (0.0-0.031); BASOPHILS # 0.08 x10^3/uL (0.01-0.08); EOSINOPHIL % 10.7 % (0.8-7.0); EOSINOPHILS # 0.98 x10^3/uL (0.04-0.54); HEMATOCRIT 38.2 % (40.1-51.0); HEMOGLOBIN 12.1 g/dL (13.7-17.5); MCHC 31.7 g/dl (32.3-36.5); MEAN CELL VOLUME 97.9 fl (79.0-92.2); MEAN PLT VOLUME 11.7 fl (9.4-12.4); MONOCYTE # 0.83 x10^3/uL (0.30-0.82); PLATELET COUNT # 172 x10^3/uL (163-337); RDW 14.3 % (12.2-16.4)
[2024-10-16 09:02] LABS: POTASSIUM 4.6 mmol/L (3.5-5.1)
[2024-10-16 09:20] LABS: MAGNESIUM 2.2 mg/dL (1.8-2.4)
[2024-10-16 09:22] LABS: BLOOD UREA NITROGEN 43.1 mg/dL (7-18)
[2024-10-16 09:23] LABS: BILIRUBIN,TOTAL 1.2 mg/dL (0.2-1)
[2024-10-16] MEDS: FUROSEMIDE 40 MG TABLET (FP) PO SCH (09:50)
[2024-10-16] MEDS: LIDOCAINE 4% PATCH TP SCH (09:53)
[2024-10-16] MEDS ORDERED: INSULIN ASPART SLIDING SCALE (NOVOLOG) 1 VIAL SQ ONE (18:06)
[2024-10-17 08:41] LABS: ABSOLUTE IMMATURE GRANULOCYTES 0.03 x10^3/uL (0.0-0.031); BASOPHILS # 0.11 x10^3/uL (0.01-0.08); EOSINOPHIL % 12.8 % (0.8-7.0); EOSINOPHILS # 1.17 x10^3/uL (0.04-0.54); HEMATOCRIT 38.1 % (40.1-51.0); HEMOGLOBIN 12.1 g/dL (13.7-17.5); MCHC 31.8 g/dl (32.3-36.5); MEAN CELL VOLUME 99.2 fl (79.0-92.2); MONOCYTE # 0.84 x10^3/uL (0.30-0.82); MONOCYTE % 9.2 % (5.3-12.2); PLATELET COUNT # 150 x10^3/uL (163-337); RDW 14.1 % (12.2-16.4)
[2024-10-17 09:36] LABS: POTASSIUM 4.6 mmol/L (3.5-5.1)
[2024-10-17 09:46] LABS: CREATININE 7.1 mg/dL (0.55-1.3)
[2024-10-17 09:48] LABS: TOT PROT 6.4 g/dl (6.4-8.2)
[2024-10-17 09:54] LABS: BILIRUBIN,TOTAL 0.9 mg/dL (0.2-1)
[2024-10-17 10:02] LABS: ALBUMIN 2.9 g/dl (3.4-5.0); BLOOD UREA NITROGEN 50.2 mg/dL (7-18)
[2024-10-17 10:10] LABS: MAGNESIUM 2.4 mg/dL (1.8-2.4)
[2024-10-17 10:11] LABS: CALCIUM 9.9 mg/dL (8.5-10.1)
[2024-10-17] MEDS ORDERED: SODIUM CHLORIDE 250 ML IV PRN (15:30)
[2024-10-17] MEDS ORDERED: GABAPENTIN 100 MG CAPSULE PO SCH (16:23)
[2024-10-17] MEDS: CEFTRIAXONE 2 GM-D5W BAG 2 GM/50 ML BAG IVPB SCH (17:17)
[2024-10-17] MEDS: oxyCODONE HCL 5 MG TABLET PO PRN (17:31)
[2024-10-17] MEDS: GABAPENTIN 100 MG CAPSULE PO SCH (22:39)
[2024-10-18 08:40] LABS: HEMATOCRIT 35.7 % (40.1-51.0); HEMOGLOBIN 11.3 g/dL (13.7-17.5); MCHC 31.7 g/dl (32.3-36.5); MEAN CELL VOLUME 97.5 fl (79.0-92.2); MEAN PLT VOLUME 11.2 fl (9.4-12.4); PLATELET COUNT # 145 x10^3/uL (163-337); RDW 13.9 % (12.2-16.4)
[2024-10-18 08:43] LABS: ABSOLUTE IMMATURE GRANULOCYTES 0.02 x10^3/uL (0.0-0.031); BASOPHILS # 0.11 x10^3/uL (0.01-0.08); EOSINOPHIL % 11.9 % (0.8-7.0); EOSINOPHILS # 1.05 x10^3/uL (0.04-0.54); HEMATOCRIT 35.7 % (40.1-51.0); HEMOGLOBIN 11.4 g/dL (13.7-17.5); MCHC 31.9 g/dl (32.3-36.5); MEAN CELL VOLUME 97.5 fl (79.0-92.2); MEAN PLT VOLUME 11.5 fl (9.4-12.4); MONOCYTE # 0.71 x10^3/uL (0.30-0.82); PLATELET COUNT # 146 x10^3/uL (163-337)
[2024-10-18 08:56] LABS: CHLORIDE 92 mmol/L (98-107); POTASSIUM 4.8 mmol/L (3.5-5.1); SODIUM 134 mmol/L (136-145)
[2024-10-18 09:00] LABS: ALBUMIN 2.7 g/dl (3.4-5.0); ANION GAP 13 mmol/L (4-13); CALCIUM 9.7 mg/dL (8.5-10.1); CO2 28 mmol/L (21-32); GLUCOSE,RANDOM 205 mg/dL (74-106); MAGNESIUM 2.1 mg/dL (1.8-2.4)
[2024-10-18 09:02] LABS: SGOT/AST 14 U/L (15-37); SGPT/ALT 10 U/L (13-61)
[2024-10-18 09:05] LABS: ALK PHOS 156 U/L (45-117); BILIRUBIN,TOTAL 1.1 mg/dL (0.2-1); TOT PROT 6.4 g/dl (6.4-8.2)
[2024-10-18 09:20] LABS: CALCIUM 9.7 mg/dL (8.5-10.1); CHLORIDE 92 mmol/L (98-107); POTASSIUM 4.9 mmol/L (3.5-5.1); SODIUM 131 mmol/L (136-145)
[2024-10-18 09:21] LABS: ANION GAP 14 mmol/L (4-13); BLOOD UREA NITROGEN 56.1 mg/dL (7-18); CO2 25 mmol/L (21-32); GLUCOSE,RANDOM 230 mg/dL (74-106)
[2024-10-18] MEDS: COLLAGENASE CLOSTRIDIUM HIST. 30 GRAMS TUBE TP SCH (09:25)
[2024-10-18 09:40] LABS: CREATININE 7.8 mg/dL (0.55-1.3)
[2024-10-18 09:41] LABS: CREATININE 8.1 mg/dL (0.55-1.3)
[2024-10-18 14:01] LABS: HEPATITIS B SURFACE AG MATERN NON-REACTIVE (NONREACTIVE)
[2024-10-19 09:41] VITALS: BP 156/63; PULSE 62; RESP 18; TEMP 97.9
== END 2024-10-19 10:23 | DRG 638 ==
LOC: JER 15:03 → JERBED 17:09 → J8W 23:48
PROVIDERS: ADMIT Hospitalist; ATTEND Nurse Practitioner Family
PROC: 5A1D70Z Performance of Urinary Filtration, Intermittent, Less than 6 Hours Per Day (ICD-10-PCS; principal; 2024-10-14)
DX: E11.621 Type 2 diabetes mellitus with foot ulcer (principal); E87.1 Hypo-osmolality and hyponatremia; I12.0 Hypertensive chronic kidney disease with stage 5 chronic kidney disease or end stage renal disease; R78.81 Bacteremia; I25.10 Atherosclerotic heart disease of native coronary artery without angina pectoris; I48.91 Unspecified atrial fibrillation; Z79.01 Long term (current) use of anticoagulants; E11.22 Type 2 diabetes mellitus with diabetic chronic kidney disease; N18.6 End stage renal disease; Z99.2 Dependence on renal dialysis; E11.40 Type 2 diabetes mellitus with diabetic neuropathy, unspecified; Z79.4 Long term (current) use of insulin; E11.51 Type 2 diabetes mellitus with diabetic peripheral angiopathy without gangrene; E11.65 Type 2 diabetes mellitus with hyperglycemia; E83.39 Other disorders of phosphorus metabolism
CPT/HCPCS: 0241U-QW; 36415; 70450-TC; 71045-TC-FY; 73590-TC-LT-FY; 73590-TC-RT-FY; 73630-TC-RT-FY; 80048; 80053; 82550; 82962; 83735; 84100; 85025; 85027; 85610; 85651; 85730; 86140; 86705; 86707; 86803; 86850; 86900; 86901; 87040; 87186; 87340; 87350; 87517; 93005; 93010; 97116-GP; 97161-GP; 97597; 99285-25; J0131; J0878

== ENCOUNTER 2025-04-12 10:40 | Inpatient (IN) | payer OTHER, BC ==
[2025-04-12 12:52] LABS: ABSOLUTE IMMATURE GRANULOCYTES 0.02 x10^3/uL (0.0-0.031); BASOPHILS # 0.06 x10^3/uL (0.01-0.08); EOSINOPHIL % 9.5 % (0.8-7.0); EOSINOPHILS # 0.81 x10^3/uL (0.04-0.54); MCHC 31.7 g/dl (32.3-36.5); MEAN CELL VOLUME 101.1 fl (79.0-92.2); MEAN PLT VOLUME 11.2 fl (9.4-12.4); MONOCYTE # 0.62 x10^3/uL (0.30-0.82); MONOCYTE % 7.3 % (5.3-12.2); RDW 15.2 % (12.2-16.4)
[2025-04-12 12:59] LABS: INR 1.4 (0.83-1.09); PROTHROMBIN TIME (PATIENT) 15.4 SEC (9.7-13.0)
[2025-04-12 13:20] LABS: GLUCOSE,RANDOM 159.0 mg/dL (74-106); TOT PROT 8.4 g/dl (6.4-8.2)
[2025-04-12 13:21] LABS: CO2 27.0 mmol/L (21-32)
[2025-04-12 13:22] LABS: ALK PHOS 499.0 U/L (40-150)
[2025-04-12 13:25] LABS: CREATININE 4.48 mg/dL (0.55-1.3); SGOT/AST 53.0 U/L (5-34); SGPT/ALT 56.0 U/L (0-55)
[2025-04-12 13:37] LABS: HCV DIAGNOSTIC IN-HOUSE W/RFLX NON-REACTIVE (NONREACTIVE); HIV INTERPRETATION NEGATIVE (NEGATIVE)
[2025-04-12 13:57] LABS: ERYTHROCYTE SEDIMENTATION RATE 66 mm/hr (0-20)
[2025-04-12] MEDS: INSULIN ASPART SLIDING SCALE (NOVOLOG) 1 VIAL SQ SCH (16:45)
[2025-04-12] MEDS: VANCOMYCIN/WATER 2 GRAMS 2,000 MG/400 ML PIGGYBACK IVPB ONE (17:43)
[2025-04-12] MEDS: ACETAMINOPHEN 1000 MG/100 ML BAG IVPB PRN (20:16)
[2025-04-12] MEDS: CARVEDILOL 25 MG TABLET (FP) PO SCH (21:16)
[2025-04-12] MEDS: PIPERACILLIN/TAZOB 2.25 GM 2.25 GM in DEXTROSE 5%-WATER - 50 ML IVPB SCH (21:16)
[2025-04-12] MEDS: ATORVASTATIN CA 20 MG TABLET (FP) PO SCH (21:16)
[2025-04-12] MEDS: APIXABAN 2.5 MG TABLET PO SCH (21:16)
[2025-04-12] MEDS: INSULIN GLARGINE (LANTUS) 100 UNITS/ML UNITS SQ SCH (21:19)
[2025-04-12] MEDS ORDERED: HEPARIN NA (PORCINE) 5,000 UNITS/ML 1ML VIAL SQ SCH (22:00)
[2025-04-12] MEDS ORDERED: PIPERACILLIN/TAZOB 2.25 GM 2.25 GM in DEXTROSE 5%-WATER - 50 ML IVPB SCH (22:00)
[2025-04-13 01:15] VITALS: RESP 18
[2025-04-13 06:49] LABS: GLUCOSE,RANDOM 96.0 mg/dL (74-106)
[2025-04-13 06:50] LABS: TOT PROT 7.5 g/dl (6.4-8.2)
[2025-04-13 06:51] LABS: CO2 23.0 mmol/L (21-32)
[2025-04-13 06:52] LABS: ALK PHOS 468.0 U/L (40-150)
[2025-04-13 06:53] LABS: ABSOLUTE IMMATURE GRANULOCYTES 0.02 x10^3/uL (0.0-0.031); BASOPHILS # 0.07 x10^3/uL (0.01-0.08); EOSINOPHIL % 12.6 % (0.8-7.0); EOSINOPHILS # 0.97 x10^3/uL (0.04-0.54); MCHC 31.8 g/dl (32.3-36.5); MEAN CELL VOLUME 100.6 fl (79.0-92.2); MEAN PLT VOLUME 11.5 fl (9.4-12.4); MONOCYTE # 0.65 x10^3/uL (0.30-0.82); MONOCYTE % 8.5 % (5.3-12.2); RDW 15.2 % (12.2-16.4)
[2025-04-13 06:55] LABS: CREATININE 5.51 mg/dL (0.55-1.3); SGOT/AST 57.0 U/L (5-34); SGPT/ALT 57.0 U/L (0-55)
[2025-04-13] MEDS: FUROSEMIDE 40 MG TABLET (FP) PO SCH (09:58)
[2025-04-13] MEDS ORDERED: SODIUM CHLORIDE 250 ML IV PRN (09:58)
[2025-04-13] MEDS: VALSARTAN 80 MG TABLET PO SCH (09:58)
[2025-04-13] MEDS ORDERED: CARVEDILOL 25 MG TABLET (FP) PO SCH (10:00)
[2025-04-13] MEDS ORDERED: VALSARTAN 160 MG TABLET PO SCH (10:00)
[2025-04-13] MEDS ORDERED: VALSARTAN 80 MG TABLET PO SCH ×2 (10:00)
[2025-04-13] MEDS: CARVEDILOL 25 MG TABLET (FP) PO SCH (10:00)
[2025-04-13] MEDS: CLOPIDOGREL BISULFATE 75 MG TABLET (FP) PO SCH (10:00)
[2025-04-13 15:10] VITALS: BMI 25.3
[2025-04-13] MEDS: PIPERACILLIN/TAZOB 2.25 GM 2.25 GM in DEXTROSE 5%-WATER - 50 ML IVPB SCH (15:10)
[2025-04-13] MEDS ORDERED: VANCOMYCIN 750 MG in DEXTROSE 5%-WATER - 150 ML IVPB SCH (16:30)
[2025-04-13] MEDS ORDERED: VANCOMYCIN/WATER FOR INJ (PEG) 750 MG/150 ML BAG IVPB SCH (16:30)
[2025-04-13 18:08] VITALS: BP 144/73; PULSE 62; TEMP 97.9
[2025-04-13 21:21] LABS: HEPATITIS B SURF AG NON-MATERN NON-REACTIVE (NONREACTIVE)
== END 2025-04-13 18:49 | disposition left against medical advice (07) | DRG 862 ==
LOC: JER 10:40 → JERBED 14:48 → J6S 15:30
PROVIDERS: ADMIT Student in an Organized Health Care Education/Training Program; ATTEND Internal Medicine
PROC: 5A1D70Z Performance of Urinary Filtration, Intermittent, Less than 6 Hours Per Day (ICD-10-PCS; principal; 2025-04-13)
DX: T81.49XA Infection following a procedure, other surgical site, initial encounter (principal); N18.6 End stage renal disease; L03.116 Cellulitis of left lower limb; I12.0 Hypertensive chronic kidney disease with stage 5 chronic kidney disease or end stage renal disease; T87.81 Dehiscence of amputation stump; Y83.9 Surgical procedure, unspecified as the cause of abnormal reaction of the patient, or of later complication, without mention of misadventure at the time of the procedure; E11.40 Type 2 diabetes mellitus with diabetic neuropathy, unspecified; E78.5 Hyperlipidemia, unspecified; I25.10 Atherosclerotic heart disease of native coronary artery without angina pectoris; I48.91 Unspecified atrial fibrillation; E11.51 Type 2 diabetes mellitus with diabetic peripheral angiopathy without gangrene; E83.39 Other disorders of phosphorus metabolism; D64.9 Anemia, unspecified; E11.22 Type 2 diabetes mellitus with diabetic chronic kidney disease; Z99.2 Dependence on renal dialysis; Z89.432 Acquired absence of left foot; Z95.1 Presence of aortocoronary bypass graft
CPT/HCPCS: 36415; 71045-TC-FY; 80053; 82962; 83735; 84100; 85025; 85610; 85651; 86140; 86704; 86803; 86850; 86900; 86901; 87070; 87081; 87205; 87340; 87389; 87517; 93005; 93010; 99285-25